=== PATIENT | female | born 1940 | race Caucasian/White ===

== ENCOUNTER 2024-05-30 11:11 | Inpatient (IN) | payer OTHER, SELFPAY ==
[2024-05-29] VITALS (9 sets, daily range): BP systolic 94–139; BP diastolic 61–97; BMI 27.9
[2024-05-29 12:01] LABS: % Basophils 0.3 % (0-2); % Eosinophils 0.1 % (0-6); % Immature Granulocytes 0.3 % (0-0.5); % Lymphocytes 12.8 % (20.5-51.1); % Monocytes 4.4 % (1.7-9.3); % Neutrophils 82.1 % (42.2-75.2); Absolute Lymphocytes 0.9 10^3/uL (1.2-3.4); Absolute Monocytes 0.3 10^3/uL (0.1-0.6); Absolute Neutrophils 5.8 10^3/uL (1.4-6.5); Hematocrit 41.4 % (37.0-47.0); Hemoglobin 14.2 g/dL (12.0-16.0); Mean Corp Hgb Conc. 34.3 g/dL (33.0-37.0); Mean Corpuscular Hgb 32.1 pg (27.0-31.0); Mean Corpuscular Volume 93.7 fL (81.0-99.0); Mean Platelet Volume 9.8 fL (7.4-10.4); Nucleated Red Blood Cells % 0 %; Platelet Count 232 10^3/uL (130-400); Red Blood Cell Count 4.42 10^6/uL (4.20-5.40); Red Cell Dist. Width 13.8 % (11.5-14.5)
[2024-05-29 12:07] LABS: INR 0.93; PT 12.7 Sec (11.4-14.6)
[2024-05-29 12:10] LABS: ALT (SGPT) 18 U/L (0-35); AST (SGOT) 24 U/L (14-36); Albumin 3.7 g/dl (3.5-5.0); Alkaline Phosphatase 70 U/L (38-126); Blood Urea Nitrogen 25 mg/dl (7-17); Calcium 9.2 mg/dl (8.4-10.2); Carbon Dioxide 28 mmol/L (22-30); Chloride 109 mmol/L (98-107); Estimated Creatinine Clearance 70 ml/min; Glucose 144 mg/dl (70-99); Potassium 4.1 mmol/L (3.5-5.1); Sodium 142 mmol/L (135-145); Total Bilirubin 0.6 mg/dl (0.2-1.3); Total Protein 5.8 g/dl (6.3-8.2); eGFR > 60.00
[2024-05-29 12:25] LABS: Troponin I 0.086 ng/ml
--- NOTE | 2024-05-29 12:30 | ED.GENMED ---
History of Present Illness
General
Chief Complaint: Dizziness
Source: patient
Exam Limitations: none
Time Seen by Provider: 05/29/24 12:07
Nursing documentation reviewed up to this point in time: agreed with
History of Present Illness
History of Present Illness:
83 yo female from [facility] here for 'vertigo and vomiting.' State she had a 'terrible' general headache 10 p.m. last night and was vomiting several times durning the night. Last emesis 1 hour ago. It was room spinning dizziness and seems to be
improving. Moving around, standing worsens dizziness, laying still relieves it
Denies weakness in extremities, denies headache now. Has chronic pain in right leg and EMG scheduled in 4 days.
Denies change in vision, denies CP, SOB, abdominal pain.
She has had vertigo in the past and had out pt therapy for it about 2 years ago.
Past History
Past History
ED Past Medical History: HTN and Hypercholesterolemia
ED Past Surgical History: Orthopedic (L ankle and R knee surg.)
Social History
Tobacco: Non-smoker
Alcohol: None
Personal: Single
Living: alone
Review of Systems
Review of Systems
Allergies reviewed?: Yes
All Other Systems: ROS reviewed and negative except as documented in HPI and ROS
Constitutional: Denies fever
EENT: Denies sore throat
Respiratory: Denies cough or trouble breathing
Cardiac: Denies chest pain, palpitations or syncope
ABD/GI: Reports nausea and vomiting; Denies abdominal pain or diarrhea
: Denies dysuria, frequency, flank pain or difficulty voiding
Musculoskeletal: Reports other (Chronic Right leg pain, has EMG scheduled in 4 days)
Skin: Reports no symptoms
Neurological: Reports dizzy and headache (last night, no headache now); Denies weakness or numbness
Phy Exam
Physical Exam
Physical Exam:
GENERAL: No acute distress. A&Ox3.
CONSTITUTIONAL: Afebrile.
EYES: clear, conjunctivae normal
ENMT: moist mucus membranes, Pharynx nl, TMs normal
RESPIRATORY: Regular respirations, nonlabored, lungs clear.
CARDIOVASCULAR: Regular rate and rhythm, no murmurs, no rubs.
GI: Soft, nontender, normal BS
MUSCULOSKELETAL: Moves with ease. Well perfused.
SKIN: Warm, dry, pink
PSYCH: Normal mood and affect. Well kept, interactive and appropriate
NEUROLOGIC: Awake, alert and oriented. Speech clear. Cranial nerves II through XII intact. Avqdes-vd-bbul intact. No focal neurological deficits
Scores
NIH Stroke Score
Level of Consciousness: 0 - Alert
LOC Questions: 0-Answers both correctly
LOC Commands: 0-Performs both correctly
Best Horizontal Gaze: 0-Normal
Visual Mendoza: 0=Normal, no visual loss
Facial Palsy: 0=Normal, symmetrical
Motor - Right Arm: 0=No drift 10 seconds
Motor - Left Arm: 0=No drift 10 seconds
Motor - Right Le-No drift 5 seconds
Motor - Left Le-No drift 5 seconds
Limb Ataxia: 0-Absent
Sensation: 0-Normal
Best Language: 0-No aphasia
Dysarthria: 0-Normal
Extinction and Inattention: 0-No abnormality
Total Score:: 0
Course
Orders/Labs/Results
Orders:
Orders
05/29/24 11:45
EKG [Electrocardiogram (*1)] Urgent
Reason for Study: Vertigo / Dizzy
CT Head W/o Iv Contrast Urgent
Comment:
Reason For Exam: dizziness, nausea
EKG- Treatment ONCE
05/29/24 11:49
Complete Blood Count/With Diff Urgent
Comprehensive Metabolic Panel Urgent
Prothrombin Time Urgent
Troponin I Urgent
05/29/24 13:20
Ondansetron Injectable [Zofran] 4 mg IV NOW STA
05/29/24 14:32
Troponin I Urgent
05/29/24 Dinner
Cholesterol Lowering
At Your Request: Limited Participation
Cholesterol Lowering: Sodium, 2 Gram
Regular
At Your Request: Full Participation
Does patient need a safe tray?: No
05/29/24 15:01
Admit/Transfer Patient As Directed
Co-Sign Provider:
Level of Care: Observation services
Assign to:: Telemetry
Physician / Group: dae jones
Diagnosis: Vertigo
Reason for Telemetry: CVA/TIA
Date to Stop Telemetry: 06/01/24
Time to Stop Telemetry: 11:00
PRN Pain Medication Management As Directed
May give lesser potent ordered pain med per pt: Yes
preference::
Protocol:: Medication orders for pain may be administered in a
manner that supports deferring to patient preference
when the pt is:
- Requesting an ordered lesser potent pain medication.
Least to most potent pain medications are defined
as: acetaminophen < NSAID < tramadol < opioids
(morphine, oxycodone, hydromorphone).
- Requesting a lesser dose of the same medication IF
ORDERED.
- Requesting a less intrusive route of administration
if both routes are prescribed by the provider (PO <
IV).
05/29/24 15:02
Code Status As Directed
Resuscitation Status: Full Code
05/29/24 16:00
Aspirin Chewable [Low Strength Aspirin] 81 mg PO DAILY
05/29/24 17:20
Acetaminophen [Tylenol] 500 mg PO Q6HPRN PRN
Bisacodyl [Dulcolax] 10 mg RECTAL [id number] PRN
Docusate W/Senna [Senokot-S] 1 tablet PO BIDPRN PRN
Meclizine [Antivert] 25 mg PO Q6HPRN PRN
Ondansetron Injectable [Zofran] 4 mg IV Q6HPRN PRN
Polyethylene Glycol Powder [Miralax] 17 grams PO DAILYPRN PRN
05/29/24 17:20
Activity As Directed
Activity Level: With Assistance
Vital Signs As Directed
Frequency: Per unit guidelines
DX Deep Vein Thrombosis Video Routine
05/29/24 17:41
Pt Screening Request from Mark Routine
05/29/24 18:00
Atorvastatin [Lipitor] 10 mg PO QPM
Enoxaparin Sodium [Lovenox] 40 mg SC QPM
Flush (0.9% Sodium Chloride) [Flush (Nss)] See Dose Instructions IV PER PROTOCOL
05/29/24 19:29
MRSA Screen Routine
MATHEW Source: Nose
Specimen Description:
05/29/24 20:57
Troponin I Routine
Urinalysis Reflex To Culture Urgent
Date Specimen was Collected: 05/29/24
Time Specimen was Collected: 17:18
Urine Microscopic Reflex Cult Urgent
Urine Culture Urgent
MATHEW Source: U
Specimen Description:
Date Specimen was Collected: 05/29/24
Time Specimen was Collected: 17:18
05/29/24 22:00
Amitriptyline [Elavil] 50 mg PO HS
05/30/24 07:04
Basic Metabolic Panel IN AM
Cardiovascular Evaluation IN AM
Complete Blood Count/No Diff IN AM
Hemoglobin A1c [Glycohemoglobin (HgbA1c)] IN AM
Troponin I IN AM
05/30/24 08:00
Amlodipine [Norvasc] 2.5 mg PO DAILY
Lisinopril [Zestril] 40 mg PO DAILY
Multivitamin [Theragran] 1 tablet PO DAILY
Pantoprazole [Protonix] 40 mg PO DAILY
05/30/24 15:07
MR Brain Without Contrast Routine
Reason For Exam: r/O CVA
OK for patient to be off Cardiac Monitoring for MRI: Yes
Recent pill cam endoscopy?: No
Pacemaker/Defibrillator?: No
Brain Aneurysm Clips?: No
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
06/01/24 11:00
DC Protocol for Telemetry ONCE
Abnormal Lab Results
05/29/24 05/29/24 05/29/24
11:49 14:32 20:57
RBC
MCH 32.1 H pg
(27.0-31.0)
Absolute Lymphs (auto) 0.9 L 10^3/uL
(1.2-3.4)
Neutrophils % 82.1 H %
(42.2-75.2)
Lymphocytes % 12.8 L %
(20.5-51.1)
Chloride 109 H mmol/L
(98-107)
BUN 25 H mg/dl
(7-17)
Glucose 144 H mg/dl
(70-99)
Troponin I 0.086 H* ng/ml 0.099 H* ng/ml 0.090 H* ng/ml
Total Protein 5.8 L g/dl
(6.3-8.2)
Triglycerides
Urine Bacteria (Reflex) Moderate A
(Negative)
Urine Albumin (Reflex) 1+ A
(Neg - Trace)
05/30/24
07:04
RBC 4.00 L 10^6/uL
(4.20-5.40)
MCH 32.3 H pg
(27.0-31.0)
Absolute Lymphs (auto)
Neutrophils %
Lymphocytes %
Chloride 110 H mmol/L
(98-107)
BUN 23 H mg/dl
(7-17)
Glucose
Troponin I 0.083 H* ng/ml
Total Protein
Triglycerides 153 H mg/dl
(10-149)
Urine Bacteria (Reflex)
Urine Albumin (Reflex)
05/30/24 07:04
05/30/24 07:04
Vital Signs
Initial and Last Documented VS:
Initial Vital Signs
Pulse Resp Pulse Ox
71 9 98
05/29/24 11:43 05/29/24 11:43 05/29/24 11:43
Last Documented Vital Signs
Temp Pulse Resp BP Pulse Ox
98.3 F 86 17 133/66 94
05/30/24 15:29 05/30/24 15:29 05/30/24 15:29 05/30/24 15:29 05/30/24 15:29
Controls Operator Molded Goods consulted with Physician
Controls Operator Molded [employer]s consulted with physician?: Yes
Name of Physician Consulted: Kvng
MDM/Problems Addressed
Differential Diagnosis Includes:
BPPV, CVA, Labyrinthitis
Elevated Troponin, AK
MDM/Problems Addressed:
83 yo female from [facility] here for 'vertigo and vomiting.' State she had a 'terrible' general headache 10 p.m. last night and was vomiting several times durning the night. Last emesis 1 hour ago. It was room spinning dizziness and seems to be
improving,. Moving around, standing worsens dizziness, laying still relieves it
Denies weakness in extremities, denies headache now. Has chronic pain in right leg and EMG scheduled in 4 days.
Denies change in vision, denies CP, SOB, abdominal pain.
She has had vertigo in the past and had out pt therapy for it about 2 years ago.
EKG abnormal: changes from previous in 2012 noted.
Troponin 0.086
CBC unremarkable
CMP with no clinically significant abnormality
Head CT shows nothing acute
2:30 PM:
This examiner attempted to get patient out of bed to ambulate to bathroom, standing at the side of the bed she became extremely dizzy and could not ambulate. Placed back in bed.
Second troponin pending
Straight cath UA pending
Plan: Admit to hospitalist. Hospitalist notified of admission.
Diagnosis: Persistent dizziness/vertigo, elevated troponin
Pt informed of plan
*EKG
EKG Intrepretation Date: 05/29/24
Interpretation: abnormal
Rate: normal
Rhythm: sinus and PVC's
Interval: first degree heart block and long QT
QRS Pattern: normal QRS
Ischemia: no ischemia
*Critical Care Note
Total Time (30-74mins, 75-104mins- exclusive of procedures): Not Applicable
ED Attending Note
-
Portions of this chart may have been created with voice recognition software.� Occasional wrong word or��sound alike� substitutions may have occurred due to the inherent limitations of voice recognition software.
Discharge Plan
Departure
Patient Disposition: Admit
Date of Disposition: 05/29/24
Time of Disposition: 14:37
Admit to: Med/Surg
Presentation/result/management discussed w/ accepting MD/DO: Hospitalist
Condition: Fair
Discharge Problem:
Dizziness
Interventions
Interventions:
*Risk Screen - Suicide Last Done: 05/29/24 11:47
*General Assessment Last Done: 05/29/24 11:47
*Neglect/Abuse Screening Last Done: 05/29/24 11:47
*ED COVID-19 Vaccine History Last Done: 05/29/24 11:47
*Nursing Disposition Last Done: 05/29/24 17:19
ED- Neurological Assessment Last Done: 05/29/24 11:48
ED- Cardiac Assessment Last Done: 05/29/24 11:48
Discharge Date and Time
Discharge Date/Time: 05/29/24 17:19
[2024-05-29] MEDS: ZOFRAN 4 MG IV ×2 (13:34→20:46)
--- NOTE | 2024-05-29 15:09 | HPS.HSE ---
Family Physician
-
Family Physician: Jesika Howard
Chief Complaint
-
Dizziness, vomiting
History of Present Illness
Patient is a pleasant 83 years old female with past medical history known for hypertension, hypercholesterolemia who came to the hospital from [facility] with vertigo which started last night associated with nausea and vomiting and headaches.
Patient denies any other neurological symptoms, no weakness or numbness, no slurred speech, no facial droop.
Patient had vertigo in the past and this is her third time.
Initial blood work in the ER came back unremarkable except for mildly elevated troponin.
Patient seen and examined at bedside, denies any chest pain or shortness of breath, no abdominal pain, no nausea, no vomiting, no diarrhea or constipation.
Dizziness improved with laying flat increased with ambulation.
Patient will be admitted under hospitalist service.
Medical History
Past Medical History
Past Medical History: Reports HTN and Hypercholesterolemia
Past Surgical History: Reports Orthopedic
Social History
Tobacco: Non-smoker
Alcohol: None
Drug: None
Personal: Single
Living: Alone
Family History
Family History: Not pertinent
Allergies / Home Medications
Allergies reflects when Allergies were last updated in [employer].
Home Medications with original date entered in [employer]
Allergy/Medication List:
Allergies
Allergy/AdvReac Type Severity Reaction Status Date / Time
beta blockers Allergy psoriasis Uncoded 05/29/24 11:45
Home Medications
amitriptyline 50 mg tablet 50 mg PO HS 02/25/13
lisinopril 40 mg tablet 40 mg PO DAILY 02/25/13
simvastatin 20 mg tablet 20 mg PO QPM 02/25/13
amlodipine 2.5 mg tablet 2.5 mg PO DAILY 12/15/14
acetaminophen 500 mg tablet (Tylenol Extra Strength) 500 mg PO TID 05/29/24
omeprazole 20 mg tablet,delayed release 20 mg PO DAILY 05/29/24
therapeutic multivitamin 1 tab PO DAILY 05/29/24
Review of Systems
-
A 12 point ROS was completed and negative except as noted: Yes
Constitutional: Denies Fever, Weight Gain, Weight Loss, Fatigue or Sleep Disturbance
EENT: Denies Tearing, Sore Throat, Mouth Pain, Mouth Swelling or Runny Nose
Respiratory: Denies Cough, Hemoptysis or Trouble Breathing
Cardiac: Denies Chest Pain, Diaphoresis, Palpitations or Syncope
Abdomen/GI: Reports Nausea and Vomiting; Denies Abdominal Pain, Diarrhea, Constipated, Bloody Stools or Black Stools
: Denies Dysuria, Frequency, Flank Pain, Incontinence, Difficulty Voiding, Urgency, Bleeding or Dark Urine
Musculoskeletal: Denies Joint Pain, Joint Swelling, Muscle Pain, Muscle Stiffness or Edema
Skin: Denies Itching or Rash
Neurological: Reports Dizzy and Headache; Denies Weakness or Numbness
Endocrine: Denies Polyuria, Polydipsia or Temp Intolerance
Hematologic/Lymphatic: Denies Bleeding, Swollen Glands or Bruising
Psych: Reports Calm; Denies Depression, Anxiety or Panic Disorder
Physical Exam
Vital Signs
Vital Signs
Temp Pulse Resp BP Pulse Ox
97.4 F 71 19 129/70 100
05/29/24 11:44 05/29/24 14:30 05/29/24 14:30 05/29/24 14:00 05/29/24 14:30
Physical Exam
General: Well Developed, Well Nourished, No Apparent Distress, Comfortable and Good Appetite; No Pain, Chills or Sweats
HEENT: NormoCephalic, Moist mucous membranes, Atraumatic, Good Dentition, PERRLA, Nose Appears Normal and Ears Appear Normal
Respiratory: Clear
Cardiac: S1/S2 and Regular Rhythm
Breast: Deferred by me
GI: Soft, Non Tender, Non Distended and Normal Bowel Sounds
Genito-urinary: Deferred by me
Musculoskeletal: No Clubbing, No Cyanosis and No Edema
Skin: Warm; No Rash, Jaundice, Ulcers, Lesions or Decubitus Ulcers
Neuro: Awake, Alert, Oriented, AO x 3, No Motor Deficits, Nonfocal/grossly intact and Cranial Nerves Intact
Hematologic/Lymphatic: No Lymphadenopathy
Psych: Calm
Laboratory Results
-
05/29/24 11:49
05/29/24 11:49
Laboratory Results
PT 12.7 Sec (11.4-14.6) 05/29/24 11:49
INR 0.93 05/29/24 11:49
Total Bilirubin 0.6 mg/dl (0.2-1.3) 05/29/24 11:49
AST 24 U/L (14-36) 05/29/24 11:49
ALT 18 U/L (0-35) 05/29/24 11:49
Alkaline Phosphatase 70 U/L (38-126) 05/29/24 11:49
Troponin I 0.086 ng/ml H* 05/29/24 11:49
Data Reviewed
-
Diagnostic Radiology: Report Reviewed by me
CT Scan: Report Reviewed by me
Medical Tests (Nuc Med, Echo, EKG etc): Report Reviewed by me
Lab Data: Labs Reviewed by me
Old Records: Reviewed
Impression/Plan
-
IMPRESSION:
Patient is 83 years old with history of hypertension and hyperlipidemia who came with dizziness and vertigo, will be admitted to rule out posterior stroke
Assessment/plan:
Dizziness, possible benign positional vertigo
CT head done in the ER shows no acute intracranial abnormality
Blood work unremarkable
Admit to telemetry bed.
Frequent neurocheck.
MRI brain (patient has istent)
Check hemoglobin A1c, fasting lipid panel.
PT/OT consult (if positive MRI)
Neurology consult if persistent symptoms
Social service for discharge.
Echo pending
start Meclizine.
Aspirin/statin
Elevated troponin.
Patient denies chest pain.
No acute EKG changes.
Echocardiogram pending
History of hypertension
Continue home meds
History of hyperlipidemia
Continue statin
CODE STATUS: Full code
DVT prophylaxis: Lovenox
Diet: Regular diet
Total time spent on today's encounter was 75 minutes which included time spent in counseling the patient/family regarding diagnosis and treatment plan as listed above, goals of care, and symptom management. Case was discussed with nursing staff,
specialists, and care coordinators/case management. All labs and imaging personally reviewed by me. Remainder the time spent in detailed review of previous records, lab data, imaging, and other medical provider documentation.
[2024-05-29 15:12] LABS: Troponin I 0.099 ng/ml
[2024-05-29] MEDS: LOW STRENGTH ASPIRIN 81 MG PO (15:37)
--- NOTE | 2024-05-29 17:45 | PTCARENOTE ---
Received pt from ED via stretcher. AAOx3. Stretcher placed next to bed, pt able to stand and pivot into bed with assist x2. Pt c/o lightheadedness and dizziness upon standing. No complaints of pain. compliance monitor placed. Will cont to monitor.
[2024-05-29] MEDS: LIPITOR 10 MG PO (18:08)
[2024-05-29] MEDS: LOVENOX 40 MG SC (18:08)
[2024-05-29] MEDS: ANTIVERT 25 MG PO (20:30)
[2024-05-29 21:08] LABS: Urine Albumin 1+ (Neg - Trace); Urine Bilirubin Negative (Negative); Urine Character Slightly Cloudy (Clear); Urine Color Yellow; Urine Glucose Negative (Negative); Urine Ketone Negative (Negative); Urine Leukocyte Negative (Negative); Urine Nitrite Negative (Negative); Urine Occult Blood Negative (Negative); Urine Urobilinogen Negative (Neg - 1+)
[2024-05-29 21:14] LABS: Urine Amorphous Seen; Urine Bacteria Moderate (Negative); Urine Red Blood Cell 0-2 /HPF (0-2)
[2024-05-29] MEDS: ELAVIL 50 MG PO (22:16)
[2024-05-30] VITALS (7 sets, daily range): BP systolic 105–153; BP diastolic 50–77; PULSE 62–79; BMI 28.1
[2024-05-30 07:18] LABS: Hematocrit 38.2 % (37.0-47.0); Hemoglobin 12.9 g/dL (12.0-16.0); Mean Corp Hgb Conc. 33.8 g/dL (33.0-37.0); Mean Corpuscular Hgb 32.3 pg (27.0-31.0); Mean Corpuscular Volume 95.5 fL (81.0-99.0); Mean Platelet Volume 10.1 fL (7.4-10.4); Platelet Count 210 10^3/uL (130-400); Red Cell Dist. Width 14.2 % (11.5-14.5); White Blood Cell Count 7.8 10^3/uL (4.8-10.8)
[2024-05-30 07:57] LABS: Troponin I 0.083 ng/ml
[2024-05-30] MEDS: LOW STRENGTH ASPIRIN 81 MG PO (08:34)
[2024-05-30] MEDS: ZESTRIL 40 MG PO (08:34)
[2024-05-30] MEDS: PROTONIX 40 MG PO (08:34)
[2024-05-30] MEDS: THERAGRAN 1 TABLET PO (08:34)
[2024-05-30] MEDS: NORVASC 2.5 MG PO (08:34)
[2024-05-30 08:35] LABS: Blood Urea Nitrogen 23 mg/dl (7-17); Carbon Dioxide 27 mmol/L (22-30); Chloride 110 mmol/L (98-107); Estimated Creatinine Clearance 60 ml/min; Glucose 91 mg/dl (70-99); HDL Cholesterol 66 mg/dl; LDL Cholesterol, Calculated 78 mg/dl; Potassium 4.4 mmol/L (3.5-5.1); Sodium 141 mmol/L (135-145); Total Cholesterol 174 mg/dl (50-199); Triglyceride 153 mg/dl (10-149); Very Low Density Lipoprotein 30 mg/dl (0-30); eGFR > 60.00
[2024-05-30 10:43] LABS: Glycohemoglobin (HgbA1c) 5.5 % (4.0-5.6)
--- NOTE | 2024-05-30 12:52 | W.PN.HOSP.TC ---
Today's Communication/Plan
-
Neuro consult
Assessment / Plan
Assessment / Plan
IMPRESSION:
Patient is 83 years old with history of hypertension and hyperlipidemia who came with dizziness and vertigo, will be admitted to rule out posterior stroke
Assessment/plan:
Acute/subacute right cerebellar hemisphere infarct
presented to the ER with dizziness.
CT head done in the ER shows no acute intracranial abnormality
MRi brain shows:
Focal areas of acute to subacute infarction involving the right cerebellar hemisphere. In the medial right cerebellar hemisphere, there is a small focus of associated hemorrhage.
Blood work unremarkable
Continue school lunch monitor
Frequent neurocheck.
Hemoglobin A1c 5.5, fasting lipid panel triglyceride 153, total cholesterol 174, LDL 78, HDL 66
PT/OT consult
Neurology consult .
Social service for discharge for discharge.
CTA head and neck pending
Echo pending
Started on aspirin but on hold now for concern of hemorrhage.
Increase statin to 40 mg.
Elevated troponin.
Patient denies chest pain.
No acute EKG changes.
Echocardiogram pending
History of hypertension
Allow permissive hypertension
History of hyperlipidemia
Continue statin
CODE STATUS: Full code
DVT prophylaxis: Lovenox
Diet: Regular diet
CODE STATUS: Full code
DVT prophylaxis: Lovenox
Diet: Regular diet
Disposition: Upgrade to inpatient
Total time spent on today's encounter was 65 minutes which included time spent in counseling the patient/family regarding diagnosis and treatment plan as listed above, goals of care, and symptom management. Case was discussed with nursing staff,
specialists, and care coordinators/case management. All labs and imaging personally reviewed by me. Remainder the time spent in detailed review of previous records, lab data, imaging, and other medical provider documentation.
Anticipated Discharge: 24 - 48 hours
Subjective/Interval History
-
Date of Service: May 30, 2024
Patient seen and examined at bedside, dizziness improved but not completely gone, denies any chest pain or shortness of breath, no abdominal pain, no nausea, no vomiting, no diarrhea or constipation.
MRI brain showed Focal areas of acute to subacute infarction involving the right cerebellar hemisphere. In the medial right cerebellar hemisphere, there is a small focus of associated hemorrhage.
Neurology consulted
Objective Data
-
Labs:
Laboratory Results
05/30/24
07:04
WBC 7.8
Hgb 12.9
Hct 38.2
Plt Count 210
Sodium 141
Potassium 4.4
Chloride 110 H
Carbon Dioxide 27
BUN 23 H
Creatinine 0.7
Glucose 91
Calcium 9.0
Vital Signs:
Vital Signs
Temp Pulse Resp BP Pulse Ox
98.2 F 60 16 133/50 96
05/30/24 10:57 05/30/24 10:57 05/30/24 10:57 05/30/24 10:57 05/30/24 10:57
I&O
05/29/24 05/30/24 05/31/24
06:59 06:59 06:59
Intake Total 480 / 480
Balance 480 / 480
Physical Exam
-
General: Well Developed, Well Nourished, No Apparent Distress and Comfortable
HEENT: Normocephalic, Atraumatic, Moist Mucous Membranes, No Ptosis, PERRLA and Nose Appears Normal
Respiratory: Clear to Auscultation and Non Labored Respirations
Cardiac: Regular Rhythm and S1/S2
Breast: Deferred by me
GI: Soft, Nontender, Nondistended and Normal Bowel Sounds
Genito-urinary: No Costovertebral Tender
Musculoskeletal: No Clubbing, No Cyanosis and No Edema
Skin: Warm
Neuro: Awake, Alert, Oriented, AO x 3 and No Motor Deficits
Psych: Calm
Data Reviewed
-
Diagnostic Radiology: Image personally visualized and interpreted and Report Reviewed by me
CT Scan: Image personally visualized and interpreted and Report Reviewed by me
Ultrasound: Image personally visualized and interpreted and Report Reviewed by me
MRI: Image personally visualized and interpreted and Report Reviewed by me
Medical Tests (Nuc Med, Echo etc): Image personally visualized and interpreted and Report Reviewed by me
Labs: Labs Reviewed by me
Old Records: Reviewed
--- NOTE | 2024-05-30 13:07 | CON.NEURO ---
Consultation
Order
Date of Consultation: 05/30/24
Requesting Provider: Kelly Hernandez MD
Reason for Consult: Stroke
Neurology Consultation Note.
HPI: This is AN 83-year-old woman who presented to [facility] on 05/29/2024 with vertigo. According to the patient she developed an acute vertigo with associated imbalance.
No reports of headaches, change in vision, dysarthria, nausea.
ER VS: 127/91, 71, afebrile
EKG: NSR, first degree of AV block, QTc Int : 504 ms
PDMP:none
Labs: Troponin 0.099, normal glucose, WBCs, sodium, LDL�78, hemoglobin A1c�5.5
CT head(05/30/2024) -no evidence of acute infarcts or hemorrhage
Brain MRI without angelique (05/30/2024)�acute right PICA/SCA infarct, medial right cerebellar, right thalamic and paramedian parietal lobe microhemorrhages.
PMH: HTN, DLP, GERD, right LS radiculopathy, glaucoma, left hip labral tear, Lichen planus, BCC, SCC, psoriasis, h/o migraine without aura
PSH:bilateral cataract surgery, right knee arthroscopy, L ankle ORIF, R bunionectomy with osteotomy
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
FH: Father�multiple sclerosis
All: Beta-mirtha
ROS: Constitutional: Negative. Negative for chills, fever and unexpected weight change.
HENT: Positive for chronic tinnitus
Eyes: Negative. Negative for photophobia, pain and visual disturbance.
Respiratory: Negative for cough, choking and shortness of breath.
Cardiovascular: Negative for chest pain, palpitations and leg swelling.
Gastrointestinal: Positive for dysphagia to solid, chronic constipation
Endocrine: Negative. Negative for cold intolerance.
Genitourinary: Negative for dysuria, flank pain and urgency.
Musculoskeletal: Positive for chronic right leg pain, left hip pain
Skin: Negative for rash.
Allergic/Immunologic: Negative. Negative for immunocompromised state.
Neurological: Positive for right leg weakness, distal paresthesias, transient vertigo
Psychiatric/Behavioral: Negative for behavioral problems, confusion and hallucinations.
General: Well developed. In no acute distress.
Cardio: Regular rate and rhythm without murmur. Extremities are without cyanosis or edema.
Neuro:
Mental Status: Alert, oriented to person, place, and date. Normal attention and recall. Good fund of knowledge. Follows complex requests across the midline. Comprehension, naming, and repetition intact.
Cranial Nerves: Pupils are equally round, surgical. EOMs full. Visual toscano full to confrontation. Horizontal nystagmus on left lateral gaze. No ptosis. V1-V3 intact to light touch and pinprick bilaterally, symmetric. Face symmetric. Reduced
hearing on the left. No lateralization on Hernandez's testing the palate elevated well. SCMs and traps 5/5. Tongue midline. No dysarthria. No dysphonia
Motor: Normal bulk and tone. No pronator or arm drift. Strength 5/5 throughout. No clonus.
Reflexes: 2+ throughout the upper extremities and knees. Plantar responses flexor bilaterally. Negative grasp
Sensory: Normal vibration at the toes and ankles
Coordination: No dysmetria or tremor.
Gait: deferred
Assessment and Plan:
I. 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
II. Multifocal chronic cerebral microhemorrhages. Differential diagnosis includes hypertensive versus cerebral amyloid angiopathy
III.Chronic R L 5 radiculopathy
IV. Ambulatory dysfunction
-Telemetry monitoring
-Aspiration and fall precautions
-Dysphagia evaluation
-Continue Aspirin 81 mg once a day.
-Lipitor 40 mg nightly
-Please follow-up CTA results
-TEJAS if TTE is unremarkable
-PT.
-Outpatient neuropsychological evaluation
-DVT prophylaxis.
I personally reviewed all radiology and labs along with past medical records pertinent to current medical problems. Total time spent in patient care is 60 minutes.
Thank you for allowing us to participate in the care of this patient. We will continue to follow. Please do not hesitate to contact us with any questions or concerns.
Subjective/Objective
Subjective Data
Date of Service: May 30, 2024
Objective Data
Vital Signs
Temp Pulse Resp BP Pulse Ox
36.8 C 60 16 133/50 96
05/30/24 10:57 05/30/24 10:57 05/30/24 10:57 05/30/24 10:57 05/30/24 10:57
Lab Results
05/30/24 07:04
05/30/24 07:04
PT 12.7 Sec (11.4-14.6) 05/29/24 11:49
INR 0.93 05/29/24 11:49
Sodium 141 mmol/L (135-145) 05/30/24 07:04
Potassium 4.4 mmol/L (3.5-5.1) 05/30/24 07:04
BUN 23 mg/dl (7-17) H 05/30/24 07:04
Glucose 91 mg/dl (70-99) 05/30/24 07:04
Calcium 9.0 mg/dl (8.4-10.2) 05/30/24 07:04
LDL Cholesterol, Calc 78 mg/dl 05/30/24 07:04
Patient Allergies
Beta-Blockers (Beta-Adrenergic Bloc Allergy (Verified 05/29/24 17:25)
PSORIASIS
Medications
-
Active Medications
Generic Name Dose Route Start Last Admin
Trade Name Freq PRN Reason Stop Dose Admin
Acetaminophen 500 mg 05/29/24 17:20
Acetaminophen 500 Mg Tablet PO 06/26/24 17:19
Q6HPRN PRN
pain
Amitriptyline HCl 50 mg 05/29/24 22:00 05/29/24 22:16
Amitriptyline 50 Mg Tablet PO 06/26/24 21:59 50 mg
HS ANGELA Administration
Amlodipine Besylate 2.5 mg 05/30/24 08:00 05/30/24 08:34
Amlodipine 2.5 Mg Tablet PO 06/27/24 07:59 2.5 mg
DAILY ANGELA Administration
Aspirin 81 mg 05/29/24 16:00 05/30/24 08:34
Aspirin 81 Mg Chewable Tablet PO 06/26/24 15:59 81 mg
DAILY ANGELA Administration
Atorvastatin Calcium 40 mg 05/30/24 18:00
Atorvastatin (Lipitor) 40 Mg Tablet PO 06/27/24 17:59
QPM ANGELA
Bisacodyl 10 mg 05/29/24 17:20
Bisacodyl 10 Mg Rectal Suppository RECTAL 06/26/24 17:19
[id number] PRN
constipation
Enoxaparin Sodium 40 mg 05/29/24 18:00 05/29/24 18:08
Enoxaparin Sodium 40 Mg/0.4 Ml Syringe SC 06/26/24 17:59 40 mg
QPM ANGELA Administration
Lisinopril 40 mg 05/30/24 08:00 05/30/24 08:34
Lisinopril 20 Mg Tablet PO 06/27/24 07:59 40 mg
DAILY ANGELA Administration
Meclizine HCl 25 mg 05/29/24 17:20 05/29/24 20:30
Meclizine 25 Mg Tablet PO 06/26/24 17:19 25 mg
Q6HPRN PRN Administration
Dizzeness
Multivitamins Therapeutic 1 tablet 05/30/24 08:00 05/30/24 08:34
Multivitamin Tablet PO 06/27/24 07:59 1 tablet
DAILY ANGELA Administration
Ondansetron HCl 4 mg 05/29/24 17:20 05/29/24 20:46
Ondansetron 4 Mg/2 Ml Vial IV 06/26/24 17:19 4 mg
Q6HPRN PRN Administration
nausea and vomiting
Pantoprazole Sodium 40 mg 05/30/24 08:00 05/30/24 08:34
Pantoprazole 40 Mg Delayed Release Tablet PO 06/27/24 07:59 40 mg
DAILY ANGELA Administration
Polyethylene Glycol 17 grams 05/29/24 17:20
Polyethylene Glycol Powder 17 Grams Packet PO 06/26/24 17:19
DAILYPRN PRN
constipation
Senna/Docusate Sodium 1 tablet 05/29/24 17:20
Docusate W/Senna (Alix-Colace) Tablet PO 06/26/24 17:19
BIDPRN PRN
constipation
Sodium Chloride 0 flush 05/29/24 18:00
Sodium Chloride 0.9% (Flush) Syringe IV 06/26/24 17:59
PER PROTOCOL ANGELA
Home Medications
�Medication �Instructions �Recorded
amitriptyline 50 mg tablet 50 mg PO HS 02/25/13
lisinopril 40 mg tablet 40 mg PO DAILY 02/25/13
simvastatin 20 mg tablet 20 mg PO QPM 02/25/13
amlodipine 2.5 mg tablet 2.5 mg PO DAILY 12/15/14
acetaminophen 500 mg tablet 500 mg PO TID 05/29/24
(Tylenol Extra Strength)
omeprazole 20 mg tablet,delayed 20 mg PO DAILY 05/29/24
release
therapeutic multivitamin 1 tab PO DAILY 05/29/24
Vital Signs and Labs
-
Vital Signs and Labs:
Vital Signs
Temp Pulse Resp BP Pulse Ox
36.8 C 60 16 133/50 96
05/30/24 10:57 05/30/24 10:57 05/30/24 10:57 05/30/24 10:57 05/30/24 10:57
Lab Results
05/30/24 07:04
05/30/24 07:04
PT 12.7 Sec (11.4-14.6) 05/29/24 11:49
INR 0.93 05/29/24 11:49
Sodium 141 mmol/L (135-145) 05/30/24 07:04
Potassium 4.4 mmol/L (3.5-5.1) 05/30/24 07:04
BUN 23 mg/dl (7-17) H 05/30/24 07:04
Glucose 91 mg/dl (70-99) 05/30/24 07:04
Calcium 9.0 mg/dl (8.4-10.2) 05/30/24 07:04
LDL Cholesterol, Calc 78 mg/dl 05/30/24 07:04
Medications
-
Medications:
Generic Name Dose Route Start Last Admin
Trade Name Freq PRN Reason Stop Dose Admin
Acetaminophen 500 mg 05/29/24 17:20
Acetaminophen 500 Mg Tablet PO 06/26/24 17:19
Q6HPRN PRN
pain
Amitriptyline HCl 50 mg 05/29/24 22:00 05/29/24 22:16
Amitriptyline 50 Mg Tablet PO 06/26/24 21:59 50 mg
HS ANGELA Administration
Amlodipine Besylate 2.5 mg 05/30/24 08:00 05/30/24 08:34
Amlodipine 2.5 Mg Tablet PO 06/27/24 07:59 2.5 mg
DAILY ANGELA Administration
Aspirin 81 mg 05/29/24 16:00 05/30/24 08:34
Aspirin 81 Mg Chewable Tablet PO 06/26/24 15:59 81 mg
DAILY ANGELA Administration
Atorvastatin Calcium 40 mg 05/30/24 18:00
Atorvastatin (Lipitor) 40 Mg Tablet PO 06/27/24 17:59
QPM ANGELA
Bisacodyl 10 mg 05/29/24 17:20
Bisacodyl 10 Mg Rectal Suppository RECTAL 06/26/24 17:19
[id number] PRN
constipation
Enoxaparin Sodium 40 mg 05/29/24 18:00 05/29/24 18:08
Enoxaparin Sodium 40 Mg/0.4 Ml Syringe SC 06/26/24 17:59 40 mg
QPM ANGELA Administration
Lisinopril 40 mg 05/30/24 08:00 05/30/24 08:34
Lisinopril 20 Mg Tablet PO 06/27/24 07:59 40 mg
DAILY ANGELA Administration
Meclizine HCl 25 mg 05/29/24 17:20 05/29/24 20:30
Meclizine 25 Mg Tablet PO 06/26/24 17:19 25 mg
Q6HPRN PRN Administration
Dizzeness
Multivitamins Therapeutic 1 tablet 05/30/24 08:00 05/30/24 08:34
Multivitamin Tablet PO 06/27/24 07:59 1 tablet
DAILY ANGELA Administration
Ondansetron HCl 4 mg 05/29/24 17:20 05/29/24 20:46
Ondansetron 4 Mg/2 Ml Vial IV 06/26/24 17:19 4 mg
Q6HPRN PRN Administration
nausea and vomiting
Pantoprazole Sodium 40 mg 05/30/24 08:00 05/30/24 08:34
Pantoprazole 40 Mg Delayed Release Tablet PO 06/27/24 07:59 40 mg
DAILY ANGELA Administration
Polyethylene Glycol 17 grams 05/29/24 17:20
Polyethylene Glycol Powder 17 Grams Packet PO 06/26/24 17:19
DAILYPRN PRN
constipation
Senna/Docusate Sodium 1 tablet 05/29/24 17:20
Docusate W/Senna (Alix-Colace) Tablet PO 06/26/24 17:19
BIDPRN PRN
constipation
Sodium Chloride 0 flush 05/29/24 18:00
Sodium Chloride 0.9% (Flush) Syringe IV 06/26/24 17:59
PER PROTOCOL ANGELA
Home Medications
-
Home Medications
amitriptyline 50 mg tablet 50 mg PO HS 02/25/13
lisinopril 40 mg tablet 40 mg PO DAILY 02/25/13
simvastatin 20 mg tablet 20 mg PO QPM 02/25/13
amlodipine 2.5 mg tablet 2.5 mg PO DAILY 12/15/14
acetaminophen 500 mg tablet (Tylenol Extra Strength) 500 mg PO TID 05/29/24
omeprazole 20 mg tablet,delayed release 20 mg PO DAILY 05/29/24
therapeutic multivitamin 1 tab PO DAILY 05/29/24
--- NOTE | 2024-05-30 14:17 | PTOTSP ---
Speech Therapy Assessment
Speech, language and swallowing deemed within functional limits. No overt signs of aspiration.
Patient provided information on outpatient services for comprehensive testing if issues noted after discharge and upon return to normal activities.
Recommend
Continue with regular solids and thin liquids.
No skilled ST indicated during acute stay. As mentioned above, comprehensive testing in outpatient setting if needed.
--- NOTE | 2024-05-30 15:58 | CON.CAR ---
Addendum entered and electronically signed by Reece Bolden DO 05/30/24 17:28:
I saw and examined the patient.
The Optical Laboratory Technician's note was reviewed and I agree with the note.
Comment:
Plan:
Pt with acute/subacute R cerebellar CVA, felt to be embolic in etiology per neurology.
No evidence of atrial fibrillation. brief run of atrial tachycardia. Will need 14 day RhythmStar monitor at d/c and if negative could consider LINQ implantable monitor.
Cont tele
For TEJAS AM as per discussion with neuro to eval for embolic source
Echo 05/30 revealed new CM with EF 35-40%, however no clear embolic source.
-Reports prior intolerance to beta blockers as metoprolol caused a years long flare of psoriasis. Does not wish to be re-trialed on beta mirtha at this time.
-On lisinopril 40mg daily and amlodipine 2.5mg daily as OP. On hold currently to allow for permissive HTN given CVA.
-Once ok per neuro, would resume lisinopril and consider transitioning amlodipine to spironolactone for CM.
-Will have CM assess cost of Entresto and Jardiance/Farxiga.
-Troponin elevation noted, peaking at 0.099 and trending down thereafter. Continues to deny chest pain.
-Given new CM and elevated troponin, also discussed eventual plan for [facility] to evaluate for coronary artery disease. Holding off for now given acute stroke. On aspirin as above.
-LDL 78, simvastatin transitioned to high lipitor 40mg daily. LDL goal <70
Original Note:
Consultation
Consultation Request
Date/Time Consultation Requested: 05/30/2024
Date/Time Consultation Performed: 05/30/2024
Requesting Provider: Dr. Hernandez
Performing Provider: Princess Rebolledo PA-C for Dr. Bolden
Reason for Consultation: New CM, acute CVA
Medical History
-
History of Present Illness:
HPI: Aviva is an 83 year old female with PMH of hypertension, hyperlipidemia, and vertigo. She notes history of somewhat chronic vertigo and dizziness, but yesterday also had vomiting which was new, so she came to ER for evaluation. In ER, she
had head CT and CTA of head/neck which were unremarkable. Brain MRI revealed acute/subacute infarcts of the R cerebellum. Also noted to have multifocal chronic cerebral microhemorrhages. She was started on aspirin and high intensity statin. She
notes no prior cardiac history and has had no palpitations, chest pain, or SOB. Echo competed 05/30/2024 and revealed new CM with EF 35-40% resulting in cardiology consult. She feels back to baseline at this time and denies any further
dizziness/lightheadedness or vomiting.
PMH:
HTN
HLD
Vertigo
Past Medical History
Past Medical History: Other (In HPI)
Past Surgical History: Orthopedic
Social History
Tobacco: Non-Smoker
Alcohol: None
Drug: None
Personal: Single
Living: Alone
Family History
Family History: Reviewed & Not Pertinent
Allergies / Home Medications
Allergy/AdvReac Type Severity Reaction Status Date / Time
Beta-Blockers Allergy PSORIASIS Verified 05/29/24 17:25
(Beta-Adrenergic Bloc
�Medication �Instructions �Recorded �Confirmed �Type
amitriptyline 50 mg tablet 50 mg PO HS depression/sleep 02/25/13 05/29/24 History
lisinopril 40 mg tablet 40 mg PO DAILY Blood Pressure 02/25/13 05/29/24 History
simvastatin 20 mg tablet 20 mg PO QPM High Cholesterol 02/25/13 05/29/24 History
amlodipine 2.5 mg tablet 2.5 mg PO DAILY Blood Pressure 12/15/14 05/29/24 History
acetaminophen 500 mg tablet 500 mg PO TID Pain 05/29/24 05/29/24 History
(Tylenol Extra Strength)
omeprazole 20 mg tablet,delayed 20 mg PO DAILY Gastrointestinal 05/29/24 05/29/24 History
release Issue
therapeutic multivitamin 1 tab PO DAILY Supplement 05/29/24 05/29/24 History
Review of Systems
-
History Source: Patient
All other systems: Negative unless noted
Physical Exam
Vital Signs
Temp Pulse Resp BP Pulse Ox
98.3 F 86 17 133/66 94
05/30/24 15:29 05/30/24 15:29 05/30/24 15:29 05/30/24 15:29 05/30/24 15:29
Lab Results
05/30/24 07:04
05/30/24 07:04
Troponin I 0.083 ng/ml H* 05/30/24 07:04
Physical Exam
General: Well Developed, Well Nourished and No Apparent Distress
HEENT: Normocephalic, Anicteric and Moist Mucous Membranes
Respiratory: Clear and Non Labored Respirations
Cardiac: S1/S2 and Regular Rhythm
Musculoskeletal: No Clubbing, No Cyanosis and No Edema
Skin: Warm and Dry
Neuro: AO x 3 and Nonfocal/Grossly Intact
Psych: Calm
Impression / Plan
-
PCP: Dr. Howard
Rd Project Manager: None prior to arrival, initially seen by Dr. Bolden
Impression:
Presented with dizziness/vomiting
Acute/subacute R cerebellar CVA
Cardiomyopathy, EF 35-40%
Elevated troponin
Atrial tachycardia
HTN
HLD
Vertigo
Echo 05/30/2024: EF 35-40%, the apex, mid to distal ineroseptal, mid to distal lateral, mid to distal inferolateral and distal anterior cuadra are hypokinetic, mild LVH, no significant valvular disease. No cardiac source of embolus identified.
Plan:
-Presented with dizziness and vomiting. Found to have acute/subacute R cerebellar CVA, felt to be embolic in etiology per neurology.
-Continues on aspirin 81mg daily. No h/o atrial fibrillation noted. Denies any palpitations.
-ECG reviewed, SR with 1st degree AV block and PACs.
-No afib on review of telemetry, however brief run of atach noted. Continue to follow on tele while admitted. Will need 14 day Rhythm Star monitor at discharge.
-Echo 05/30 revealed new CM with EF 35-40%, however no clear embolic source. Patient denies any SOB or chest pain.
-Will tentatively arrange for TEJAS in AM to further assess for cardioembolic source. NPO after midnight.
-Reports prior intolerance to beta blockers as metoprolol caused a years long flare of psoriasis. Does not wish to be re-trialed on beta mirtha at this time.
-On lisinopril 40mg daily and amlodipine 2.5mg daily as OP. On hold currently to allow for permissive HTN given CVA.
-Once ok per neuro, would resume lisinopril and consider transitioning amlodipine to spironolactone for CM.
-Will have CM assess cost of Entresto and Jardiance/Farxiga.
-Troponin elevation noted, peaking at 0.099 and trending down thereafter. Continues to deny chest pain.
-Given new CM and elevated troponin, also discussed eventual plan for [facility] to evaluate for coronary artery disease. Holding off for now given acute stroke. On aspirin as above.
-LDL 78, simvastatin transitioned to high lipitor 40mg daily.
HPI: Aviva is an 83 year old female with PMH of hypertension, hyperlipidemia, and vertigo. She notes history of somewhat chronic vertigo and dizziness, but yesterday also had vomiting which was new, so she came to ER for evaluation. In ER, she
had head CT and CTA of head/neck which were unremarkable. Brain MRI revealed acute/subacute infarcts of the R cerebellum. Also noted to have multifocal chronic cerebral microhemorrhages. She was started on aspirin and high intensity statin. She
notes no prior cardiac history and has had no palpitations, chest pain, or SOB. Echo competed 05/30/2024 and revealed new CM with EF 35-40% resulting in cardiology consult. She feels back to baseline at this time and denies any further
dizziness/lightheadedness or vomiting.
Data Reviewed
-
EKG: Tracing Personally Visualized and interpreted
CT Scan: Report Reviewed by me
MRI: Report Reviewed by me
Medical Tests (Nuc Med, Echo etc): Report Reviewed by me
Labs: Labs Reviewed by me
Old Records: Reviewed
--- NOTE | 2024-05-30 16:49 | CM ---
Alert awake oriented patient who lives alone at [id number] She is independent in [facility] daily [facility].She does drive .She used a walker and cane .
No VN in past . No SNF hx
Pharmacy [facility]
PCP Dr Howard
PLAN Will need PT OT evals for discharge planning
[2024-05-30] MEDS: LIPITOR 40 MG PO (17:03)
[2024-05-30] MEDS: LOVENOX 40 MG SC (17:03)
[2024-05-30] MEDS: ELAVIL 50 MG PO (22:28)
[2024-05-31] VITALS (8 sets, daily range): BP systolic 105–143; BP diastolic 52–70; PULSE 67–68; O2SAT 94–95
[2024-05-31 06:20] LABS: Hematocrit 39.2 % (37.0-47.0); Hemoglobin 13.4 g/dL (12.0-16.0); Mean Corp Hgb Conc. 34.2 g/dL (33.0-37.0); Mean Corpuscular Hgb 32.8 pg (27.0-31.0); Mean Corpuscular Volume 95.8 fL (81.0-99.0); Mean Platelet Volume 10.2 fL (7.4-10.4); Platelet Count 203 10^3/uL (130-400); Red Blood Cell Count 4.09 10^6/uL (4.20-5.40); Red Cell Dist. Width 14.1 % (11.5-14.5); White Blood Cell Count 7.4 10^3/uL (4.8-10.8)
[2024-05-31 06:47] LABS: Blood Urea Nitrogen 19 mg/dl (7-17); Calcium 9.1 mg/dl (8.4-10.2); Carbon Dioxide 26 mmol/L (22-30); Chloride 107 mmol/L (98-107); Estimated Creatinine Clearance 60 ml/min; Glucose 94 mg/dl (70-99); Potassium 4.4 mmol/L (3.5-5.1); Sodium 138 mmol/L (135-145); eGFR > 60.00
[2024-05-31] MEDS: THERAGRAN 1 TABLET PO (07:53)
[2024-05-31] MEDS: PROTONIX 40 MG PO (07:53)
[2024-05-31] MEDS: LOW STRENGTH ASPIRIN 81 MG PO (07:53)
--- NOTE | 2024-05-31 09:31 | W.PN.NEURO.1 ---
Today's Communication / Plan
-
.
Subjective/Objective
Subjective Data
Date of Service: May 31, 2024
Neurology Follow up Note.
Ms. Silva endorses mild ataxia when she was working with PT earlier today. No reports of nausea, headache, change in vision, incoordination.
TEJAS is scheduled for today.
TTE was unremarkable.
CTA head/neck-no evidence of significant stenosis or dissection.
Brain MRI without angelique (05/30/2024)�acute right PICA/SCA infarct, medial right cerebellar, right thalamic and paramedian parietal lobe microhemorrhages.
PMH: HTN, DLP, GERD, right LS radiculopathy, glaucoma, left hip labral tear, Lichen planus, BCC, SCC, psoriasis, h/o migraine without aura
PSH:bilateral cataract surgery, right knee arthroscopy, L ankle ORIF, R bunionectomy with osteotomy
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
FH: Father�multiple sclerosis
All: Beta-mirtha
ROS: Constitutional: Negative. Negative for chills, fever and unexpected weight change.
HENT: Positive for chronic tinnitus
Eyes: Negative. Negative for photophobia, pain and visual disturbance.
Respiratory: Negative for cough, choking and shortness of breath.
Cardiovascular: Negative for chest pain, palpitations and leg swelling.
Gastrointestinal: Positive for dysphagia to solid, chronic constipation
Endocrine: Negative. Negative for cold intolerance.
Genitourinary: Negative for dysuria, flank pain and urgency.
Musculoskeletal: Positive for chronic right leg pain, left hip pain
Skin: Negative for rash.
Allergic/Immunologic: Negative. Negative for immunocompromised state.
Neurological: Positive for right leg weakness, distal paresthesias, transient vertigo
Psychiatric/Behavioral: Negative for behavioral problems, confusion and hallucinations.
General: Well developed. In no acute distress.
Cardio: Regular rate and rhythm without murmur. Extremities are without cyanosis or edema.
Neuro:
Mental Status: Alert, oriented to person, place, and date. Normal attention and recall. Good fund of knowledge. Follows complex requests across the midline. Comprehension, naming, and repetition intact.
Cranial Nerves: Pupils are equally round, surgical. EOMs full. Visual toscano full to confrontation. Horizontal nystagmus on left lateral gaze. No ptosis. V1-V3 intact to light touch and pinprick bilaterally, symmetric. Face symmetric. Reduced
hearing on the left. No lateralization on Hernandez's testing the palate elevated well. SCMs and traps 5/5. Tongue midline. No dysarthria. No dysphonia
Motor: Normal bulk and tone. No pronator or arm drift. Strength 5/5 throughout. No clonus.
Coordination: No dysmetria or tremor.
Gait: deferred
Assessment and Plan:
I. 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
II. Multifocal chronic cerebral microhemorrhages. Differential diagnosis includes hypertensive versus cerebral amyloid angiopathy
III. Chronic R L 5 radiculopathy
IV. Ambulatory dysfunction
-Telemetry monitoring
-Fall precautions
-Continue Aspirin 81 mg once a day.
-Lipitor 40 mg nightly
-Will follow up TEJAS results
-PT.
-Outpatient NCS/EMG(scheduled)
-DVT prophylaxis.
I personally reviewed all radiology and labs along with past medical records pertinent to current medical problems. Total time spent in patient care is 35 minutes.
Thank you for allowing us to participate in the care of this patient. We will continue to follow. Please do not hesitate to contact us with any questions or concerns.
Objective Data
Vital Signs
Temp Pulse Resp BP Pulse Ox
36.6 C 68 14 129/52 96
05/31/24 07:33 05/31/24 07:33 05/31/24 07:33 05/31/24 07:33 05/31/24 07:33
Lab Results
05/31/24 05:12
05/31/24 05:12
PT 12.7 Sec (11.4-14.6) 05/29/24 11:49
INR 0.93 05/29/24 11:49
Sodium 138 mmol/L (135-145) 05/31/24 05:12
Potassium 4.4 mmol/L (3.5-5.1) 05/31/24 05:12
BUN 19 mg/dl (7-17) H 05/31/24 05:12
Glucose 94 mg/dl (70-99) 05/31/24 05:12
Calcium 9.1 mg/dl (8.4-10.2) 05/31/24 05:12
LDL Cholesterol, Calc 78 mg/dl 05/30/24 07:04
Patient Allergies
Beta-Blockers (Beta-Adrenergic Bloc Allergy (Verified 05/29/24 17:25)
PSORIASIS
Vital Signs and Labs
-
Vital Signs and Labs:
Vital Signs
Temp Pulse Resp BP Pulse Ox
36.6 C 68 14 129/52 96
05/31/24 07:33 05/31/24 07:33 05/31/24 07:33 05/31/24 07:33 05/31/24 07:33
Lab Results
05/31/24 05:12
05/31/24 05:12
PT 12.7 Sec (11.4-14.6) 05/29/24 11:49
INR 0.93 05/29/24 11:49
Sodium 138 mmol/L (135-145) 05/31/24 05:12
Potassium 4.4 mmol/L (3.5-5.1) 05/31/24 05:12
BUN 19 mg/dl (7-17) H 05/31/24 05:12
Glucose 94 mg/dl (70-99) 05/31/24 05:12
Calcium 9.1 mg/dl (8.4-10.2) 05/31/24 05:12
LDL Cholesterol, Calc 78 mg/dl 05/30/24 07:04
Medications
-
Medications:
Generic Name Dose Route Start Last Admin
Trade Name Freq PRN Reason Stop Dose Admin
Acetaminophen 500 mg 05/29/24 17:20
Acetaminophen 500 Mg Tablet PO 06/26/24 17:19
Q6HPRN PRN
pain
Amitriptyline HCl 50 mg 05/29/24 22:00 05/30/24 22:28
Amitriptyline 50 Mg Tablet PO 06/26/24 21:59 50 mg
HS ANGELA Administration
Amlodipine Besylate 2.5 mg 05/30/24 08:00 05/30/24 08:34
Amlodipine 2.5 Mg Tablet PO 06/27/24 07:59 2.5 mg
DAILY ANGELA Administration
Aspirin 81 mg 05/29/24 16:00 05/31/24 07:53
Aspirin 81 Mg Chewable Tablet PO 06/26/24 15:59 81 mg
DAILY ANGELA Administration
Atorvastatin Calcium 40 mg 05/30/24 18:00 05/30/24 17:03
Atorvastatin (Lipitor) 40 Mg Tablet PO 06/27/24 17:59 40 mg
QPM ANGELA Administration
Bisacodyl 10 mg 05/29/24 17:20
Bisacodyl 10 Mg Rectal Suppository RECTAL 06/26/24 17:19
[id number] PRN
constipation
Enoxaparin Sodium 40 mg 05/29/24 18:00 05/30/24 17:03
Enoxaparin Sodium 40 Mg/0.4 Ml Syringe SC 06/26/24 17:59 40 mg
QPM ANGELA Administration
Lisinopril 40 mg 05/30/24 08:00 05/30/24 08:34
Lisinopril 20 Mg Tablet PO 06/27/24 07:59 40 mg
DAILY ANGELA Administration
Meclizine HCl 25 mg 05/29/24 17:20 05/29/24 20:30
Meclizine 25 Mg Tablet PO 06/26/24 17:19 25 mg
Q6HPRN PRN Administration
Dizzeness
Multivitamins Therapeutic 1 tablet 05/30/24 08:00 05/31/24 07:53
Multivitamin Tablet PO 06/27/24 07:59 1 tablet
DAILY ANGELA Administration
Ondansetron HCl 4 mg 05/29/24 17:20 05/29/24 20:46
Ondansetron 4 Mg/2 Ml Vial IV 06/26/24 17:19 4 mg
Q6HPRN PRN Administration
nausea and vomiting
Pantoprazole Sodium 40 mg 05/30/24 08:00 05/31/24 07:53
Pantoprazole 40 Mg Delayed Release Tablet PO 06/27/24 07:59 40 mg
DAILY ANGELA Administration
Polyethylene Glycol 17 grams 05/29/24 17:20
Polyethylene Glycol Powder 17 Grams Packet PO 06/26/24 17:19
DAILYPRN PRN
constipation
Senna/Docusate Sodium 1 tablet 05/29/24 17:20
Docusate W/Senna (Alix-Colace) Tablet PO 06/26/24 17:19
BIDPRN PRN
constipation
Sodium Chloride 0 flush 05/29/24 18:00
Sodium Chloride 0.9% (Flush) Syringe IV 06/26/24 17:59
PER PROTOCOL ANGELA
Home Medications
-
Home Medications
amitriptyline 50 mg tablet 50 mg PO HS depression/sleep 02/25/13
lisinopril 40 mg tablet 40 mg PO DAILY Blood Pressure 02/25/13
simvastatin 20 mg tablet 20 mg PO QPM High Cholesterol 02/25/13
amlodipine 2.5 mg tablet 2.5 mg PO DAILY Blood Pressure 12/15/14
acetaminophen 500 mg tablet (Tylenol Extra Strength) 500 mg PO TID Pain 05/29/24
omeprazole 20 mg tablet,delayed release 20 mg PO DAILY Gastrointestinal Issue 05/29/24
therapeutic multivitamin 1 tab PO DAILY Supplement 05/29/24
--- NOTE | 2024-05-31 09:47 | CM ---
notified of following med prices:Farxiaga not covered, Entresco and Jardiance both $22.00 copay
PT OT needed for discharge planning.
IMM given yesterday Signed on chart.
PLAN PT OT needed for dc planning
--- NOTE | 2024-05-31 12:16 | W.PN.UPDATE ---
Update Note
Progress Note Update
TEJAS (full report to follow)
moderately reduced LVF
No thrombus in LA appendage
Mild AR
Saline bubble sty=udy .no clear evidenceof in=tracardiact shunting. Few bubbles seen in LA very late after injection.
--- NOTE | 2024-05-31 12:47 | W.PN.HOSP.TC ---
Today's Communication/Plan
-
Cleared for discharge after seen by physiatry
Assessment / Plan
Assessment / Plan
IMPRESSION:
Patient is 83 years old with history of hypertension and hyperlipidemia who came with dizziness and vertigo, will be admitted to rule out posterior stroke
Assessment/plan:
Acute/subacute right cerebellar hemisphere infarct
presented to the ER with dizziness.
CT head done in the ER shows no acute intracranial abnormality
MRi brain shows:
Focal areas of acute to subacute infarction involving the right cerebellar hemisphere. In the medial right cerebellar hemisphere, there is a small focus of associated hemorrhage.
Blood work unremarkable
Continue cardiac rehabilitation specialist
Frequent neurocheck.
Hemoglobin A1c 5.5, fasting lipid panel triglyceride 153, total cholesterol 174, LDL 78, HDL 66
PT/OT consult
Neurology consult .
Social service for discharge for discharge.
CTA head and neck shows:
No hemodynamically significant stenosis of the carotid or vertebral arterial system bilaterally and no findings to suggest internal carotid artery or vertebral artery dissection bilaterally.
Mildly dominant left vertebral artery.
Tortuous basilar artery.
Cannot exclude some narrowing/stenosis of the left PICA.
Approximate 0.9 cm calcified left lobe thyroid nodule.
Echo shows:
Normal left ventricular chamber size. Mildly to moderately left ventricular
ejection fraction is 35-40%. reduced left ventricular systolic function by
visual assessment. The apex, mid to distal inferoseptal, mid to distal lateral,
mid to distal inferolateral and distal anterior cuadra are hypokinetic. Mild
left ventricular hypertrophy.
No significant valvular disease.
No cardiac source of embolus identified consider TEJAS if clinically indicated
Appreciate neurology input.
05/31
Status post TEJAS shows no source of intracardiac thrombus
Cardiomyopathy
Echocardiogram shows EF 35 to 40%.
no sign of Volume overload.
Patient with Elevated troponin.
Patient denies chest pain.
Surgery input.
Patient will need eventually ischemic workup
History of hypertension
Resume home meds
History of hyperlipidemia
Continue statin
CODE STATUS: Full code
DVT prophylaxis: Lovenox
Diet: Regular diet
Total time spent on today's encounter was 65 minutes which included time spent in counseling the patient/family regarding diagnosis and treatment plan as listed above, goals of care, and symptom management. Case was discussed with nursing staff,
specialists, and care coordinators/case management. All labs and imaging personally reviewed by me. Remainder the time spent in detailed review of previous records, lab data, imaging, and other medical provider documentation.
Anticipated Discharge: Within 24 hours
Subjective/Interval History
-
Date of Service: May 31, 2024
Patient seen and examined at bedside, denies any chest pain or shortness of breath, no abdominal pain, no nausea, no vomiting, no diarrhea or constipation.
Had TEJAS today with no sign of intracardiac thrombosis.
Objective Data
-
Labs:
Laboratory Results
05/31/24
05:12
WBC 7.4
Hgb 13.4
Hct 39.2
Plt Count 203
Sodium 138
Potassium 4.4
Chloride 107
Carbon Dioxide 26
BUN 19 H
Creatinine 0.7
Glucose 94
Calcium 9.1
Vital Signs:
Vital Signs
Temp Pulse Resp BP Pulse Ox
98.3 F 90 16 130/70 96
05/31/24 10:58 05/31/24 10:58 05/31/24 10:58 05/31/24 10:58 05/31/24 10:58
I&O
05/30/24 05/31/24 06/01/24
06:59 06:59 06:59
Intake Total 480 / 480 720 / 720
Balance 480 / 480 720 / 720
Physical Exam
-
General: Well Developed, Well Nourished, No Apparent Distress and Comfortable
HEENT: Normocephalic, Atraumatic, Moist Mucous Membranes, No Ptosis, PERRLA and Nose Appears Normal
Respiratory: Clear to Auscultation and Non Labored Respirations
Cardiac: Regular Rhythm and S1/S2
Breast: Deferred by me
GI: Soft, Nontender, Nondistended and Normal Bowel Sounds
Genito-urinary: No Costovertebral Tender
Musculoskeletal: No Clubbing, No Cyanosis and No Edema
Skin: Warm
Neuro: Awake, Alert, Oriented, AO x 3 and No Motor Deficits
Psych: Calm
Data Reviewed
-
Diagnostic Radiology: Image personally visualized and interpreted and Report Reviewed by me
CT Scan: Image personally visualized and interpreted and Report Reviewed by me
Ultrasound: Image personally visualized and interpreted and Report Reviewed by me
MRI: Image personally visualized and interpreted and Report Reviewed by me
Medical Tests (Nuc Med, Echo etc): Image personally visualized and interpreted and Report Reviewed by me
Labs: Labs Reviewed by me
Old Records: Reviewed
--- NOTE | 2024-05-31 15:54 | W.PN.CARDCBS ---
Today's Communication / Plan
-
No cardioembolic source of stroke identified
We will arrange for 14-day outpatient monitor to assess for A-fib
Impression / Plan
-
PCP: Dr. Howard
Archery Instructor: None prior to arrival, initially seen by Dr. Bolden
Impression:
Presented with dizziness/vomiting
Acute/subacute R cerebellar CVA
Cardiomyopathy, EF 35-40%
Elevated troponin
Atrial tachycardia
HTN
HLD
Vertigo
Echo 05/30/2024: EF 35-40%, the apex, mid to distal ineroseptal, mid to distal lateral, mid to distal inferolateral and distal anterior cuadra are hypokinetic, mild LVH, no significant valvular disease. No cardiac source of embolus identified.
Plan:
-Presented with dizziness and vomiting. Found to have acute/subacute R cerebellar CVA, felt to be embolic in etiology per neurology.
-No afib on review of telemetry, however atach/ectopic atrial rhythm noted. Continue to follow on tele while admitted. Will need 14 day R[employer] Star monitor at discharge.
-TEJAS earlier today did not identify a cardioembolic source of stroke
-Agree with ASA/high intensity statin
-Echo 05/30 revealed new CM with EF 35-40%
-Reports prior intolerance to beta blockers as metoprolol caused a years long flare of psoriasis. Does not wish to be re-trialed on beta mirtha at this time.
-On lisinopril 40mg daily and amlodipine 2.5mg daily as OP. On hold currently to allow for permissive HTN given CVA.
-Once ok per neuro, would resume lisinopril
-Troponin elevation noted, peaking at 0.099 and trending down thereafter. Continues to deny chest pain.
-Given new CM and elevated troponin, would plan for eventual ischemic evaluation, but would holding off in the near term given acute stroke. On aspirin/statin as above.
Stable for discharge from my perspective
Will arrange outpatient monitor and follow-up
HPI: Aviva is an 83 year old female with PMH of hypertension, hyperlipidemia, and vertigo. She notes history of somewhat chronic vertigo and dizziness, but yesterday also had vomiting which was new, so she came to ER for evaluation. In ER, she
had head CT and CTA of head/neck which were unremarkable. Brain MRI revealed acute/subacute infarcts of the R cerebellum. Also noted to have multifocal chronic cerebral microhemorrhages. She was started on aspirin and high intensity statin. She
notes no prior cardiac history and has had no palpitations, chest pain, or SOB. Echo competed 05/30/2024 and revealed new CM with EF 35-40% resulting in cardiology consult. She feels back to baseline at this time and denies any further
dizziness/lightheadedness or vomiting.
Progress Note - Archery Instructor
Subjective
Date of Service: May 31, 2024
No acute overnight events. Patient is resting comfortably in bed. No cardiac complaints.
Objective
Labs:
05/31/24 05:12
05/31/24 05:12
Labs
Hgb 13.4 g/dL (12.0-16.0) 05/31/24 05:12
Hct 39.2 % (37.0-47.0) 05/31/24 05:12
Plt Count 203 10^3/uL (130-400) 05/31/24 05:12
PT 12.7 Sec (11.4-14.6) 05/29/24 11:49
INR 0.93 05/29/24 11:49
Sodium 138 mmol/L (135-145) 05/31/24 05:12
Potassium 4.4 mmol/L (3.5-5.1) 05/31/24 05:12
BUN 19 mg/dl (7-17) H 05/31/24 05:12
Creatinine 0.7 mg/dL (0.6-1.0) 05/31/24 05:12
Glucose 94 mg/dl (70-99) 05/31/24 05:12
Troponins
05/29/24 05/29/24 05/29/24
11:49 14:32 20:57
Troponin I 0.086 H* 0.099 H* 0.090 H*
05/30/24
07:04
Troponin I 0.083 H*
Vital Signs and I&O:
Vital Signs
Temp Pulse Resp BP Pulse Ox
99 F 71 14 118/59 98
05/31/24 15:36 05/31/24 15:36 05/31/24 15:36 05/31/24 15:36 05/31/24 15:36
Vital Signs
Temp Pulse Resp BP Pulse Ox
99 F 71 14 118/59 98
05/31/24 15:36 05/31/24 15:36 05/31/24 15:36 05/31/24 15:36 05/31/24 15:36
Intake & Output
05/29/24 05/30/24 05/31/24 06/01/24
06:59 06:59 06:59 06:59
Intake Total 480 / 480 720 / 720
Balance 480 / 480 720 / 720
Physical Exam
Physical Exam
Gen: NAD, AA
HEENT: NC/AT, sclera anicteric
Neck: No JVD
CV: RRR, NL s1/s2
Lungs: CTAB
Abd: S/ND
Ext: No LE edema
Skin: Warm, dry
Neuro: Non-focal
[2024-05-31] MEDS: LIPITOR 40 MG PO (17:32)
[2024-05-31] MEDS: LOVENOX 40 MG SC (17:32)
[2024-05-31] MEDS: ELAVIL 50 MG PO (22:39)
[2024-06-01] VITALS (7 sets, daily range): BP systolic 113–159; BP diastolic 54–89; PULSE 78–93; O2SAT 96
[2024-06-01] MEDS: PROTONIX 40 MG PO (08:24)
[2024-06-01] MEDS: THERAGRAN 1 TABLET PO (08:24)
[2024-06-01] MEDS: LOW STRENGTH ASPIRIN 81 MG PO (08:24)
[2024-06-01] MEDS: TYLENOL 500 MG PO (08:29)
--- NOTE | 2024-06-01 09:21 | CON.MR ---
Documented by User: Carolee Caro MD, Resident 06/01/24 15:21
Medical History
-
History of Present Illness:
Patient is a 83 year old female with past medical history of hypertension, hypercholesterolemia who came to the hospital from [facility] with headache, vertigo, nausea and vomiting. Patient has chronic pain in right leg and had EMG scheduled in 4
days. Initial blood work in the ER was unremarkable except for mildly elevated troponin. CT head done in the ER showed no acute intracranial abnormality. NIHSS was 0. CTA of head/neck unremarkable. Brain MRI was suggestive of acute right PICA/SCA
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 No cardiac source of embolus was identified on echo (TTE and TEJAS). Cardiology and neurology on board. No evidence of atrial fibrillation
on tele, brief run of atrial tachycardia. Plan for 14 day RhythmStar monitor at d/c and if negative consider LINQ implantable monitor.
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 Patient is on Aspirin, Lipitor, Meclizine prn and Lovenox for DVT prophylaxis.
Given CVA and PFO on TEJAS, bilateral lower extremity duplex ultrasound was ordered which showed no evidence for lower extremity venous thrombosis.
Echo (TTE): left ventricular ejection fraction is 35-40%. The apex, mid to distal inferoseptal, mid to distal lateral, mid to distal inferolateral and distal anterior cuadra are hypokinetic. Mild left ventricular hypertrophy. No significant
valvular disease. No cardiac source of embolus identified.
Echo (TEJAS): Moderately reduced left ventricular function with more pronounced hypokinesis of the distal portions of the LV and left ventricular apex. Mild aortic regurgitation. Mild tricuspid regurgitation. A small number of bubbles is seen crossing
into the left atrium on saline contrast/bubble study suggestive of PFO.
Past medical history: HTN, DLP, GERD, right LS radiculopathy, glaucoma, left hip labral tear, Lichen planus, BCC, SCC, psoriasis, h/o migraine without aura
Past surgical history: bilateral cataract surgery, right knee arthroscopy, L ankle ORIF, R bunionectomy with osteotomy
Family history: Not pertinent
Social History:
Functional Level Premorbidly: Patient lives alone at [facility], patient was independent with ADLs and ambulation, patient had been using a walker in the past couple weeks for ambulation but used a cane prior to that.
Functional Level Currently: Minimal assist for grooming, moderate assist for toileting, supervision for lower extremity self-care, min assist for transfer, supervision for mobility
Tobacco: Non-smoker
Alcohol: Denies
Drug use: Denies
Lives with: Alone
24-hour assistance available: No
Number of floors: 1
# steps to enter: 0
Driving: Yes
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
Review of Systems:
Constitutional: (x) Normal _
Eye: (x) Normal _
Ear/Nose/Throat: (x) Normal _
Respiratory: (x) Normal _
Cardiovascular: (x) Normal _
Gastrointestinal: (x) Normal _
Genitourinary: (x) Normal _
Musculoskeletal: (x) Abnormal _ right leg pain
Integumentary: (x) Normal _
Neurologic: (x) Abnormal _ altered sensation on b/l distal lower extremity, patient leans to right when standing
Psychiatric: (x) Normal _
Endocrine: (x) Normal _
Hematologic/Lymphatic: (x) Normal _
Allergic/Immunologic: (x) Normal _
Allergies / Home Medications
Allergy/AdvReac Type Severity Reaction Status Date / Time
Beta-Blockers Allergy PSORIASIS Verified 05/29/24 17:25
(Beta-Adrenergic Bloc
�Medication �Instructions �Recorded �Confirmed �Last Taken �Type
amitriptyline 50 mg tablet 50 mg PO HS depression/sleep 02/25/13 05/29/24 05/27/24 History
lisinopril 40 mg tablet 40 mg PO DAILY Blood Pressure 02/25/13 05/29/24 05/28/24 History
simvastatin 20 mg tablet 20 mg PO QPM High Cholesterol 02/25/13 05/29/24 05/28/24 History
amlodipine 2.5 mg tablet 2.5 mg PO DAILY Blood Pressure 12/15/14 05/29/24 05/28/24 History
acetaminophen 500 mg tablet 500 mg PO TID Pain 05/29/24 05/29/24 05/28/24 History
(Tylenol Extra Strength)
omeprazole 20 mg tablet,delayed 20 mg PO DAILY Gastrointestinal 05/29/24 05/29/24 05/28/24 History
release Issue
therapeutic multivitamin 1 tab PO DAILY Supplement 05/29/24 05/29/24 Unknown History
Physical Exam
Active Medications
Generic Name Dose Route Start Last Admin
Trade Name Freq PRN Reason Stop Dose Admin
Acetaminophen 500 mg 05/29/24 17:20 06/01/24 08:29
Acetaminophen 500 Mg Tablet PO 06/26/24 17:19 500 mg
Q6HPRN PRN Administration
pain
Amitriptyline HCl 50 mg 05/29/24 22:00 05/31/24 22:39
Amitriptyline 50 Mg Tablet PO 06/26/24 21:59 50 mg
HS ANGELA Administration
Amlodipine Besylate 2.5 mg 05/30/24 08:00 05/30/24 08:34
Amlodipine 2.5 Mg Tablet PO 06/27/24 07:59 2.5 mg
DAILY ANGELA Administration
Aspirin 81 mg 05/29/24 16:00 06/01/24 08:24
Aspirin 81 Mg Chewable Tablet PO 06/26/24 15:59 81 mg
DAILY ANGELA Administration
Atorvastatin Calcium 40 mg 05/30/24 18:00 05/31/24 17:32
Atorvastatin (Lipitor) 40 Mg Tablet PO 06/27/24 17:59 40 mg
QPM ANGELA Administration
Bisacodyl 10 mg 05/29/24 17:20
Bisacodyl 10 Mg Rectal Suppository RECTAL 06/26/24 17:19
[id number] PRN
constipation
Enoxaparin Sodium 40 mg 05/29/24 18:00 05/31/24 17:32
Enoxaparin Sodium 40 Mg/0.4 Ml Syringe SC 06/26/24 17:59 40 mg
QPM ANGELA Administration
Lisinopril 40 mg 05/30/24 08:00 05/30/24 08:34
Lisinopril 20 Mg Tablet PO 06/27/24 07:59 40 mg
DAILY ANGELA Administration
Meclizine HCl 25 mg 05/29/24 17:20 05/29/24 20:30
Meclizine 25 Mg Tablet PO 06/26/24 17:19 25 mg
Q6HPRN PRN Administration
Dizzeness
Multivitamins Therapeutic 1 tablet 05/30/24 08:00 06/01/24 08:24
Multivitamin Tablet PO 06/27/24 07:59 1 tablet
DAILY ANGELA Administration
Ondansetron HCl 4 mg 05/29/24 17:20 05/29/24 20:46
Ondansetron 4 Mg/2 Ml Vial IV 06/26/24 17:19 4 mg
Q6HPRN PRN Administration
nausea and vomiting
Pantoprazole Sodium 40 mg 05/30/24 08:00 06/01/24 08:24
Pantoprazole 40 Mg Delayed Release Tablet PO 06/27/24 07:59 40 mg
DAILY ANGELA Administration
Polyethylene Glycol 17 grams 05/29/24 17:20
Polyethylene Glycol Powder 17 Grams Packet PO 06/26/24 17:19
DAILYPRN PRN
constipation
Senna/Docusate Sodium 1 tablet 05/29/24 17:20
Docusate W/Senna (Alix-Colace) Tablet PO 06/26/24 17:19
BIDPRN PRN
constipation
Sodium Chloride 0 flush 05/29/24 18:00
Sodium Chloride 0.9% (Flush) Syringe IV 06/26/24 17:59
PER PROTOCOL ANGELA
Vital Signs
Temp Pulse Resp BP Pulse Ox
98 F 63 14 116/54 96
06/01/24 07:16 06/01/24 07:16 06/01/24 07:16 06/01/24 07:16 06/01/24 07:16
Height 5 ft 4 in
Actual Weight 74.117 kg
Body Mass Index (BMI) 28.1
Physical Exam
Physical Exam:
General Appearance/Observation: Well-developed, well-nourished individual in no apparent distress.
Pain/Comfort Assessment: Denies
Mood/Affect: Appropriate
Integumentary/Operative Site:
Pressure Ulcer: absent
Other Type of Wound: absent
Eyes: Conjunctiva/Lids: normal Pupils: pupils equal round and reactive to light and accommodation. Horizontal nystagmus on left lateral gaze
Ears/Nose/Throat: oral mucosa moist, throat clear. Lips/Teeth/Gums: normal
Neck: No muscle spasm or tenderness
Cardiovascular: Heart: regular, no murmur
Pulses: dorsalis pedis 2+ bilaterally
Respiratory: Respiratory Effort/Chest Expansion: normal Auscultation: Clear to auscultation bilaterally
Gastrointestinal: abdomen not tender, no distension, normal abdominal bowel sounds
Genitourinary: No Sagastume
Rectal Exam: Deferred
Extremities: Edema: None Cyanosis: None Trophic changes: None
Neurology Exam:
Orientation: Alert, Oriented to self, Time, Place
Memory: Intact immediately and at 3 minutes
Higher cortical function
Speech: Intact
Repetition: Intact
Comprehension: Intact
Two step command: Intact
Naming: Intact
Cranial Nerves:
CNII: Pupillary light reflex: Intact Visual Field: Intact
CN III, IV, : Extraocular muscles: Intact
CN V: Facial Sensation at Forehead: Intact , Maxilla: Intact, Mandible: Intact
CN VII: Facial movement: Symmetric
CN VIII: Hearing: Normal
CN IX/X: Speech & swallow: Normal, Position of Uvula: Midline
CN XI: Shoulder shrug: Symmetric
CN XII: Tongue protrusion: Midline
Sensory:
Light touch: Intact in bilateral upper and lower extremities
Reflexes:
Biceps: 2+ bilaterally
Brachioradialis: 2+ bilaterally
Triceps: 2+ bilaterally
Patellar: 2+ bilaterally
Achilles: 2+ bilaterally
Babinski: Downgoing bilaterally
Clonus: None
Greg: Negative bilaterally
Cerebellar: Dysmetria/Ataxia: None
Musculoskeletal:
Motor: (Manual muscle scale 0-5)
Muscle SA EF WE EE FF FA HF KE DF EHL PF
Right 4 5 4 5 5 5 4 5 5 5 5
Left 4 5 4 5 5 5 4+ 5 5 5 5
Tone: Normal in all extremities
Range of Motion: Passively within normal limits in all extremities
Lab Results
05/31/24 05:12
05/31/24 05:12
WBC 7.4 10^3/uL (4.8-10.8) 05/31/24 05:12
Hgb 13.4 g/dL (12.0-16.0) 05/31/24 05:12
Hct 39.2 % (37.0-47.0) 05/31/24 05:12
MCV 95.8 fL (81.0-99.0) 05/31/24 05:12
Plt Count 203 10^3/uL (130-400) 05/31/24 05:12
PT 12.7 Sec (11.4-14.6) 05/29/24 11:49
INR 0.93 05/29/24 11:49
Sodium 138 mmol/L (135-145) 05/31/24 05:12
Potassium 4.4 mmol/L (3.5-5.1) 05/31/24 05:12
Chloride 107 mmol/L (98-107) 05/31/24 05:12
Carbon Dioxide 26 mmol/L (22-30) 05/31/24 05:12
BUN 19 mg/dl (7-17) H 05/31/24 05:12
Creatinine 0.7 mg/dL (0.6-1.0) 05/31/24 05:12
eGFR > 60.00 05/31/24 05:12
Glucose 94 mg/dl (70-99) 05/31/24 05:12
Hemoglobin A1c 5.5 % (4.0-5.6) 05/30/24 07:04
Calcium 9.1 mg/dl (8.4-10.2) 05/31/24 05:12
Total Bilirubin 0.6 mg/dl (0.2-1.3) 05/29/24 11:49
AST 24 U/L (14-36) 05/29/24 11:49
ALT 18 U/L (0-35) 05/29/24 11:49
Alkaline Phosphatase 70 U/L (38-126) 05/29/24 11:49
Total Protein 5.8 g/dl (6.3-8.2) L 05/29/24 11:49
Albumin 3.7 g/dl (3.5-5.0) 05/29/24 11:49
Diagnostic Results
As per HPI.
Assessment / Plan
Plan
PM&R PT/OT to increase independence with ADLs, improve balance, coordination, endurance, strength, mobility, community reintegration, decreased burden of care on others and family education.
CVA: Secondary prophylaxis with aspirin, statin, and blood pressure control (SBP less than 180 and diastolic less than 100 to participate with therapy for ischemic stroke). Continue to monitor neurologic status.
Peripheral polyneuropathy: Patient with altered sensation on b/l LE. Suggest getting an EMG/nerve conduction study which can be done inpatient or if necessary as an outpatient. This will help limit the differential diagnosis. Common etiologies
include diabetes, alcohol use, B12, thyroid disorder, autoimmune concerns. It is reasonable to check a B12, TSH, and hemoglobin A1c to start. Patient at high risk of falling with subsequent significant neuropathy.
Vertigo: Patient is currently on prn meclizine. Can consider switching to standing meclizine and taper as needed.
HTN: Continue medications, monitor closely
HLD: Continue statin
CHF: EF 35-40%, monitor fluid status
GERD: Continue omeprazole
Psych: Monitor mood, adjust medications as needed.
Skin: monitor for pressure sores/rashes/lesions.
Pain: acetaminophen or oxycodone as needed.
Bowel: Colace and Senna, PRN bisacodyl.
Bladder: Time void, PVRs, PRN straight cath.
DVT Prophylaxis: Lovenox
Safety: Continue to reinforce assistance with all transfers.
Code Status: Full code
Dispo (date/plan/equipment needs): Acute rehab. Social history reviewed.
Functional and Medical Goals: Modified Independent with ADL�s, ambulation, transfers
Summary
-
Summary of recommendations:
- Discharge Destination: Acute rehab
Thank you for allowing me to care for your patient. Please contact me with any questions or concerns.
Comments
-
This note was dictated using a voice recognition system. Please excuse any typographical errors from wardsperson. If you believe there are any discrepancies, please notify our office.

Documented by User: Kolby Garcia MD 06/01/24 20:37
Consultation
Consultation Request
Requesting Provider: Dr. Kelly Hernandez
Performing Provider: Dr. Garcia
Reason for Consultation: Stroke
Medical History
-
Chief Complaint: Stroke
Physical Exam
Physical Exam
Physical Exam:
General Appearance/Observation: Well-developed, well-nourished female in no apparent distress.
Pain/Comfort Assessment: Denies
Mood/Affect: Appropriate
Integumentary/Operative Site: no wounds noted during course of exam.
Eyes: Conjunctiva/Lids: normal Pupils: pupils equal round and reactive to light and accommodation. Horizontal nystagmus on left lateral gaze
Ears/Nose/Throat: oral mucosa moist, throat clear. Lips/Teeth/Gums: normal
Neck: No muscle spasm or tenderness
Cardiovascular: Heart: regular, no murmur
Pulses: dorsalis pedis 2+ bilaterally
Respiratory: Respiratory Effort/Chest Expansion: normal Auscultation: Clear to auscultation bilaterally
Gastrointestinal: abdomen not tender, no distension, normal abdominal bowel sounds
Genitourinary: No Sagastume
Rectal Exam: Deferred
Extremities: Edema: None Cyanosis: None Trophic changes: None
Neurology Exam:
Orientation: Alert, Oriented to self, Time, Place
Memory: Intact for recent medical concerns
Repetition: Intact
Comprehension: Intact
Two step command: Intact
Naming: Intact
Cranial Nerves:
CNII: Pupillary light reflex: Intact Visual Field: Intact
CN III, IV, : Extraocular muscles: Intact
CN V: Facial Sensation at Forehead: Intact , Maxilla: Intact, Mandible: Intact
CN VII: Facial movement: Symmetric
CN VIII: Hearing: Normal
CN IX/X: Speech & swallow: Normal, Position of Uvula: Midline
CN XI: Shoulder shrug: Symmetric
CN XII: Tongue protrusion: Midline
Sensory:
Light touch: Intact in bilateral upper and lower extremities
Reflexes:
Biceps: 2+ bilaterally
Brachioradialis: 2+ bilaterally
Triceps: 2+ bilaterally
Patellar: 2+ bilaterally
Achilles: 2+ bilaterally
Babinski: Downgoing bilaterally
Clonus: None
Greg: Negative bilaterally
Cerebellar: Dysmetria/Ataxia: None
Musculoskeletal: Motor: (Manual muscle scale 0-5)
Muscle SA EF WE EE FF FA HF KE DF EHL PF
Right 4 5 5 5 5 4 4 5 5 5 5
Left 4 5 5 5 5 4 4+ 5 5 5 5
Tone: Normal in all extremities
Range of Motion: Passively within normal limits in all extremities
Assessment / Plan
Assessment
83 R handed F PMH (HTN, DLP, GERD, right LS radiculopathy, glaucoma, left hip labral tear, Lichen planus, BCC, SCC, psoriasis, h/o migraine without aura) with 05/29/24 headache, vertigo, nausea and vomiting from acute right PICA/SCA infarct in the
medial right cerebellar region, and right thalamic and paramedian parietal lobe microhemorrhages with PFO but no DVT and no arrhythmia with ADL and ambulatory dysfunction.
Plan
PM&R PT/OT to increase independence with ADLs, improve balance, coordination, endurance, strength, mobility, community reintegration, decreased burden of care on others and family education.
CVA: Secondary prophylaxis with aspirin (not on plavix), statin, and blood pressure control (SBP less than 180 and diastolic less than 100 to participate with therapy for ischemic stroke). Continue to monitor neurologic status.
- Has PFO with no DVT.
- Microhemorrhages likely secondary to HTN or amyloid per neuro
Peripheral polyneuropathy: Patient with altered sensation on b/l LE. Suggest getting an EMG/nerve conduction study which can be done as an outpatient. This will help limit the differential diagnosis. Common etiologies include diabetes, alcohol use,
B12, thyroid disorder, autoimmune concerns. It is reasonable to check a B12, and TSH. Hemoglobin A1c is good. Patient at risk of falling with neuropathy.
Vertigo: Patient is currently on prn meclizine. Not having any symptoms at this time.
HTN: Amlodipine 2.5 mg daily, lisinopril 40 mg daily, monitor closely
HLD: statin
CHF: EF 35-40%, monitor fluid status
GERD: omeprazole
FEN: Regular diet
Psych: Monitor mood, medications as needed.
Skin: monitor for pressure sores/rashes/lesions.
Pain: acetaminophen as needed.
Bowel: Colace and Senna, PRN bisacodyl.
Bladder: Time void, PVRs, PRN straight cath.
DVT Prophylaxis: Lovenox, mechanical
Safety: Continue to reinforce assistance with all transfers.
Code Status: Full code
Dispo (date/plan/equipment needs): Acute rehab. Social history reviewed.
Functional and Medical Goals: Modified Independent with ADL�s, ambulation, transfers
Summary of recommendations:
Discharge Destination: Acute inpatient rehabilitation
CVA: Secondary prophylaxis with aspirin (not on plavix), statin, and blood pressure control (SBP less than 180 and diastolic less than 100 to participate with therapy for ischemic stroke). Continue to monitor neurologic status.
- Has PFO with no DVT.
- Microhemorrhages likely secondary to HTN or amyloid per neuro
Peripheral polyneuropathy: Patient with altered sensation on b/l LE. Suggest getting an EMG/nerve conduction study which can be done as an outpatient. This will help limit the differential diagnosis. Common etiologies include diabetes, alcohol use,
B12, thyroid disorder, autoimmune concerns. It is reasonable to check a B12, and TSH. Hemoglobin A1c is good. Patient at risk of falling with neuropathy.
I personally performed a history and physical exam of the patient and discussed management with the resident. I reviewed the resident's note and agree with the documented findings and plan of care HPI/CC. Physical exam and plan updated to reflect
my findings and plan. A total of 60 minutes were spent with the patient preparing for the evaluation, obtaining history, performing examination and evaluation, counseling, data review, case management, care coordination, division order analyst, and EMR
documentation.
--- NOTE | 2024-06-01 10:11 | W.PN.NEURO.1 ---
Today's Communication / Plan
-
.
Subjective/Objective
Subjective Data
Date of Service: June 01, 2024
Neurology Follow up Note.
Ms. Silva denies having headaches, change in vision, nausea or vertigo.
TEJAS showed PFO.
TEJAS is scheduled for today.
TTE was unremarkable.
CTA head/neck-no evidence of significant stenosis or dissection.
Brain MRI without angelique (05/30/2024)�acute right PICA/SCA infarct, medial right cerebellar, right thalamic and paramedian parietal lobe microhemorrhages.
PMH: HTN, DLP, GERD, right LS radiculopathy, glaucoma, left hip labral tear, Lichen planus, BCC, SCC, psoriasis, h/o migraine without aura
PSH:bilateral cataract surgery, right knee arthroscopy, L ankle ORIF, R bunionectomy with osteotomy
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
FH: Father�multiple sclerosis
All: Beta-mirtha
ROS: Constitutional: Negative. Negative for chills, fever and unexpected weight change.
HENT: Positive for chronic tinnitus
Eyes: Negative. Negative for photophobia, pain and visual disturbance.
Respiratory: Negative for cough, choking and shortness of breath.
Cardiovascular: Negative for chest pain, palpitations and leg swelling.
Gastrointestinal: Positive for dysphagia to solid, chronic constipation
Endocrine: Negative. Negative for cold intolerance.
Genitourinary: Negative for dysuria, flank pain and urgency.
Musculoskeletal: Positive for chronic right leg pain, left hip pain
Skin: Negative for rash.
Allergic/Immunologic: Negative. Negative for immunocompromised state.
Neurological: Positive for right leg weakness, distal paresthesias, transient vertigo
Psychiatric/Behavioral: Negative for behavioral problems, confusion and hallucinations.
General: Well developed. In no acute distress.
Cardio: Regular rate and rhythm without murmur. Extremities are without cyanosis or edema.
Neuro:
Mental Status: Alert, oriented to person, place, and date. Normal attention and recall. Good fund of knowledge. Follows complex requests across the midline. Comprehension, naming, and repetition intact.
Cranial Nerves: Pupils are equally round, surgical. EOMs full. Visual toscano full to confrontation. Horizontal nystagmus on left lateral gaze. No ptosis. V1-V3 intact to light touch and pinprick bilaterally, symmetric. Face symmetric. Reduced
hearing on the left. No lateralization on Hernandez's testing the palate elevated well. SCMs and traps 5/5. Tongue midline. No dysarthria. No dysphonia
Motor: Normal bulk and tone. No pronator or arm drift. Strength 5/5 throughout. No clonus.
Coordination: No dysmetria or tremor.
Gait: deferred
Assessment and Plan:
I. 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
II. PFO. Risk of Paradoxical Embolism Score-3.0%. Chance that stroke is due to PFO-0%. 20% risk of 2 year recurrence of stroke/TIA.
III. Multifocal chronic cerebral microhemorrhages. Differential diagnosis includes hypertensive versus cerebral amyloid angiopathy
IV. Chronic R L 5 radiculopathy
-Telemetry monitoring
-Fall precautions
-Continue Aspirin 81 mg once a day.
-Lipitor 40 mg nightly
-Please obtain lower extremity Doppler ultrasound
-PT.
-Outpatient NCS/EMG(scheduled)
-DVT prophylaxis.
-OP Holter monitoring/ILR
-OP neurology follow-up
-Please recall neurology service with any questions or concerns.
I personally reviewed all radiology and labs along with past medical records pertinent to current medical problems. Total time spent in patient care is 35 minutes.
Thank you for allowing us to participate in the care of this patient. Please do not hesitate to contact us with any questions or concerns.
Objective Data
Vital Signs
Temp Pulse Resp BP Pulse Ox
36.6 C 63 14 116/54 96
06/01/24 07:16 06/01/24 07:16 06/01/24 07:16 06/01/24 07:16 06/01/24 07:16
Lab Results
05/31/24 05:12
05/31/24 05:12
PT 12.7 Sec (11.4-14.6) 05/29/24 11:49
INR 0.93 05/29/24 11:49
Sodium 138 mmol/L (135-145) 05/31/24 05:12
Potassium 4.4 mmol/L (3.5-5.1) 05/31/24 05:12
BUN 19 mg/dl (7-17) H 05/31/24 05:12
Glucose 94 mg/dl (70-99) 05/31/24 05:12
Calcium 9.1 mg/dl (8.4-10.2) 05/31/24 05:12
LDL Cholesterol, Calc 78 mg/dl 05/30/24 07:04
Patient Allergies
Beta-Blockers (Beta-Adrenergic Bloc Allergy (Verified 05/29/24 17:25)
PSORIASIS
Vital Signs and Labs
-
Vital Signs and Labs:
Vital Signs
Temp Pulse Resp BP Pulse Ox
36.6 C 63 14 116/54 96
06/01/24 07:16 06/01/24 07:16 06/01/24 07:16 06/01/24 07:16 06/01/24 07:16
Lab Results
05/31/24 05:12
05/31/24 05:12
PT 12.7 Sec (11.4-14.6) 05/29/24 11:49
INR 0.93 05/29/24 11:49
Sodium 138 mmol/L (135-145) 05/31/24 05:12
Potassium 4.4 mmol/L (3.5-5.1) 05/31/24 05:12
BUN 19 mg/dl (7-17) H 05/31/24 05:12
Glucose 94 mg/dl (70-99) 05/31/24 05:12
Calcium 9.1 mg/dl (8.4-10.2) 05/31/24 05:12
LDL Cholesterol, Calc 78 mg/dl 05/30/24 07:04
Medications
-
Medications:
Generic Name Dose Route Start Last Admin
Trade Name Freq PRN Reason Stop Dose Admin
Acetaminophen 500 mg 05/29/24 17:20 06/01/24 08:29
Acetaminophen 500 Mg Tablet PO 06/26/24 17:19 500 mg
Q6HPRN PRN Administration
pain
Amitriptyline HCl 50 mg 05/29/24 22:00 05/31/24 22:39
Amitriptyline 50 Mg Tablet PO 06/26/24 21:59 50 mg
HS ANGELA Administration
Amlodipine Besylate 2.5 mg 05/30/24 08:00 05/30/24 08:34
Amlodipine 2.5 Mg Tablet PO 06/27/24 07:59 2.5 mg
DAILY ANGELA Administration
Aspirin 81 mg 05/29/24 16:00 06/01/24 08:24
Aspirin 81 Mg Chewable Tablet PO 06/26/24 15:59 81 mg
DAILY ANGELA Administration
Atorvastatin Calcium 40 mg 05/30/24 18:00 05/31/24 17:32
Atorvastatin (Lipitor) 40 Mg Tablet PO 06/27/24 17:59 40 mg
QPM ANGELA Administration
Bisacodyl 10 mg 05/29/24 17:20
Bisacodyl 10 Mg Rectal Suppository RECTAL 06/26/24 17:19
[id number] PRN
constipation
Enoxaparin Sodium 40 mg 05/29/24 18:00 05/31/24 17:32
Enoxaparin Sodium 40 Mg/0.4 Ml Syringe SC 06/26/24 17:59 40 mg
QPM ANGELA Administration
Lisinopril 40 mg 05/30/24 08:00 05/30/24 08:34
Lisinopril 20 Mg Tablet PO 06/27/24 07:59 40 mg
DAILY ANGELA Administration
Meclizine HCl 25 mg 05/29/24 17:20 05/29/24 20:30
Meclizine 25 Mg Tablet PO 06/26/24 17:19 25 mg
Q6HPRN PRN Administration
Dizzeness
Multivitamins Therapeutic 1 tablet 05/30/24 08:00 06/01/24 08:24
Multivitamin Tablet PO 06/27/24 07:59 1 tablet
DAILY ANGELA Administration
Ondansetron HCl 4 mg 05/29/24 17:20 05/29/24 20:46
Ondansetron 4 Mg/2 Ml Vial IV 06/26/24 17:19 4 mg
Q6HPRN PRN Administration
nausea and vomiting
Pantoprazole Sodium 40 mg 05/30/24 08:00 06/01/24 08:24
Pantoprazole 40 Mg Delayed Release Tablet PO 06/27/24 07:59 40 mg
DAILY ANGELA Administration
Polyethylene Glycol 17 grams 05/29/24 17:20
Polyethylene Glycol Powder 17 Grams Packet PO 06/26/24 17:19
DAILYPRN PRN
constipation
Senna/Docusate Sodium 1 tablet 05/29/24 17:20
Docusate W/Senna (Alix-Colace) Tablet PO 06/26/24 17:19
BIDPRN PRN
constipation
Sodium Chloride 0 flush 05/29/24 18:00
Sodium Chloride 0.9% (Flush) Syringe IV 06/26/24 17:59
PER PROTOCOL ANGELA
Home Medications
-
Home Medications
amitriptyline 50 mg tablet 50 mg PO HS depression/sleep 02/25/13
lisinopril 40 mg tablet 40 mg PO DAILY Blood Pressure 02/25/13
simvastatin 20 mg tablet 20 mg PO QPM High Cholesterol 02/25/13
amlodipine 2.5 mg tablet 2.5 mg PO DAILY Blood Pressure 12/15/14
acetaminophen 500 mg tablet (Tylenol Extra Strength) 500 mg PO TID Pain 05/29/24
omeprazole 20 mg tablet,delayed release 20 mg PO DAILY Gastrointestinal Issue 05/29/24
therapeutic multivitamin 1 tab PO DAILY Supplement 05/29/24
--- NOTE | 2024-06-01 11:24 | W.PN.HOSP.TC ---
Addendum entered and electronically signed by Kelly Hernandez MD 06/01/24 13:31:
Non-ischemic myocardial injury
Original Note:
Today's Communication/Plan
-
Cleared for discharge to rehab today
Assessment / Plan
Assessment / Plan
IMPRESSION:
Patient is 83 years old with history of hypertension and hyperlipidemia who came with dizziness and vertigo, found to have stroke.
MRi brain shows:
Focal areas of acute to subacute infarction involving the right cerebellar hemisphere. In the medial right cerebellar hemisphere, there is a small focus of associated hemorrhage
Seen by cardiology and neurology
Echocardiogram done shows
Normal left ventricular chamber size. Mildly to moderately left ventricular
ejection fraction is 35-40%. reduced left ventricular systolic function by
visual assessment. The apex, mid to distal inferoseptal, mid to distal lateral,
mid to distal inferolateral and distal anterior cuadra are hypokinetic. Mild
left ventricular hypertrophy.
No significant valvular disease.
No cardiac source of embolus identified consider TEJAS if clinically indicated
Status post TEJAS shows no source of intracardiac thrombus.
Will be discharged to rehab on aspirin and high-dose statin.
To follow-up with neurology as outpatient.
Follow-up with cardiology as outpatient for ischemic workup.
Assessment/plan:
Acute/subacute right cerebellar hemisphere infarct
presented to the ER with dizziness.
CT head done in the ER shows no acute intracranial abnormality
MRi brain shows:
Focal areas of acute to subacute infarction involving the right cerebellar hemisphere. In the medial right cerebellar hemisphere, there is a small focus of associated hemorrhage.
Blood work unremarkable
Continue engine monitor
Frequent neurocheck.
Hemoglobin A1c 5.5, fasting lipid panel triglyceride 153, total cholesterol 174, LDL 78, HDL 66
PT/OT consult
Neurology consult .
Social service for discharge for discharge.
CTA head and neck shows:
No hemodynamically significant stenosis of the carotid or vertebral arterial system bilaterally and no findings to suggest internal carotid artery or vertebral artery dissection bilaterally.
Mildly dominant left vertebral artery.
Tortuous basilar artery.
Cannot exclude some narrowing/stenosis of the left PICA.
Approximate 0.9 cm calcified left lobe thyroid nodule.
Echo shows:
Normal left ventricular chamber size. Mildly to moderately left ventricular
ejection fraction is 35-40%. reduced left ventricular systolic function by
visual assessment. The apex, mid to distal inferoseptal, mid to distal lateral,
mid to distal inferolateral and distal anterior cuadra are hypokinetic. Mild
left ventricular hypertrophy.
No significant valvular disease.
No cardiac source of embolus identified consider TEJAS if clinically indicated
Appreciate neurology input.
05/31
Status post TEJAS shows no source of intracardiac thrombus
Cardiomyopathy
Echocardiogram shows EF 35 to 40%.
no sign of Volume overload.
Patient with Elevated troponin.
Patient denies chest pain.
Surgery input.
Patient will need eventually ischemic workup
History of hypertension
Resume home meds
History of hyperlipidemia
Continue statin
CODE STATUS: Full code
DVT prophylaxis: Lovenox
Diet: Regular diet
Total time spent on today's encounter was 65 minutes which included time spent in counseling the patient/family regarding diagnosis and treatment plan as listed above, goals of care, and symptom management. Case was discussed with nursing staff,
specialists, and care coordinators/case management. All labs and imaging personally reviewed by me. Remainder the time spent in detailed review of previous records, lab data, imaging, and other medical provider documentation.
Anticipated Discharge: Today
Subjective/Interval History
-
Date of Service: June 01, 2024
Patient seen and examined at bedside, denies any chest pain or shortness of breath, no abdominal pain, no nausea, no vomiting, no diarrhea or constipation.
Pending placement to rehab.
Objective Data
-
Vital Signs:
Vital Signs
Temp Pulse Resp BP Pulse Ox
98 F 63 14 116/54 95
06/01/24 07:16 06/01/24 07:16 06/01/24 07:16 06/01/24 07:16 06/01/24 08:29
I&O
05/31/24 06/01/24 06/02/24
06:59 06:59 06:59
Intake Total 720 / 720 600 / 600
Balance 720 / 720 600 / 600
Physical Exam
-
General: Well Developed, Well Nourished, No Apparent Distress and Comfortable
HEENT: Normocephalic, Atraumatic, Moist Mucous Membranes, No Ptosis, PERRLA and Nose Appears Normal
Respiratory: Clear to Auscultation and Non Labored Respirations
Cardiac: Regular Rhythm and S1/S2
Breast: Deferred by me
GI: Soft, Nontender, Nondistended and Normal Bowel Sounds
Genito-urinary: No Costovertebral Tender
Musculoskeletal: No Clubbing, No Cyanosis and No Edema
Skin: Warm
Neuro: Awake, Alert, Oriented, AO x 3 and No Motor Deficits
Psych: Calm
Data Reviewed
-
Diagnostic Radiology: Image personally visualized and interpreted and Report Reviewed by me
CT Scan: Image personally visualized and interpreted and Report Reviewed by me
Ultrasound: Image personally visualized and interpreted and Report Reviewed by me
MRI: Image personally visualized and interpreted and Report Reviewed by me
Medical Tests (Nuc Med, Echo etc): Image personally visualized and interpreted and Report Reviewed by me
Labs: Labs Reviewed by me
Old Records: Reviewed
--- NOTE | 2024-06-01 12:50 | PN.CDI ---
CDI
- -
CDI:
Physician Documentation Request
Admit Date: 05/30/24 11:11
Dear Doctor ,
Please review the following and provide your response in the progress notes.
Clinical Indicators:
Pt admitted with CVA most likely embolic in nature with chronic cerebral microhemorrhages.
Documented throughout the record, ' Cardiomyopathy Echocardiogram shows EF 35 to 40%....Patient with Elevated troponin....'
Cardiology consult and notes, ' -Troponin elevation noted, peaking at 0.099 and trending down thereafter. Continues to deny chest pain. ...'
Please provide in your notes the diagnosis associated with the elevated troponin:
Non-ischemic myocardial injury
Insignificant abnormal lab finding
Other ( please specify)
Use of terms such as suspected, likely, concern for, or probable (associated with a specific diagnosis that is being evaluated, monitored, or treated as if it exists) are acceptable and can be coded in the inpatient setting, when documented at the
time of discharge.
Thank you,
Estrella Grady RN
CDI Specialist
[place] [facility]
Please use your independent medical judgment in providing your response.
--- NOTE | 2024-06-01 13:04 | PTCARENOTE ---
patient c/o right foot pain, improved after PRN Tylenol, tolerating diet, sitting oob for both breakfast and lunch, transferring with assist x1 with use of rolling walker, vss, will continue to monitor.
--- NOTE | 2024-06-01 16:50 | CM ---
Spoke with [facility] no beds available at only at [place] .
PAC data given to pt for SNF .
Will need to locate SNF and auth needed .
Pt requested [facility] .
PLAN To SNF will NEEED aUTH
[2024-06-01] MEDS: LIPITOR 40 MG PO (17:21)
[2024-06-01] MEDS: LOVENOX 40 MG SC (17:21)
--- NOTE | 2024-06-01 20:51 | PTCARENOTE ---
NIH assessed 0 at this time. Pt ambulatory to bathroom with assist x1 and walker, pt with lean to the right while walking and lacks control when attempting to sit on toilet falling to the right. No other neuro deficits noted at this time. Pt denies
complaints of vertigo. Pt positioned in bed per comfort. Call nicholas in reach. Will continue to monitor.
[2024-06-01] MEDS: ELAVIL 50 MG PO (21:15)
[2024-06-02] VITALS (7 sets, daily range): BP systolic 102–147; BP diastolic 52–88; PULSE 72; O2SAT 98
[2024-06-02] MEDS: NORVASC PO ×2 (08:23→08:51)
[2024-06-02] MEDS: ZESTRIL 40 MG PO (08:23)
[2024-06-02] MEDS: LOW STRENGTH ASPIRIN 81 MG PO (08:23)
[2024-06-02] MEDS: THERAGRAN 1 TABLET PO (08:23)
[2024-06-02] MEDS: PROTONIX 40 MG PO (08:23)
--- NOTE | 2024-06-02 09:32 | W.PN.HOSP.TC ---
Today's Communication/Plan
-
Medically cleared for discharge
Assessment / Plan
Assessment / Plan
IMPRESSION:
Patient is 83 years old with history of hypertension and hyperlipidemia who came with dizziness and vertigo, found to have stroke.
MRi brain shows:
Focal areas of acute to subacute infarction involving the right cerebellar hemisphere. In the medial right cerebellar hemisphere, there is a small focus of associated hemorrhage
Seen by cardiology and neurology
Echocardiogram done shows
Normal left ventricular chamber size. Mildly to moderately left ventricular
ejection fraction is 35-40%. reduced left ventricular systolic function by
visual assessment. The apex, mid to distal inferoseptal, mid to distal lateral,
mid to distal inferolateral and distal anterior cuadra are hypokinetic. Mild
left ventricular hypertrophy.
No significant valvular disease.
No cardiac source of embolus identified consider TJEAS if clinically indicated
Status post TEJAS shows no source of intracardiac thrombus.
Will be discharged to rehab on aspirin and high-dose statin.
To follow-up with neurology as outpatient.
Follow-up with cardiology as outpatient for ischemic workup.
Assessment/plan:
Acute/subacute right cerebellar hemisphere infarct
presented to the ER with dizziness.
CT head done in the ER shows no acute intracranial abnormality
MRi brain shows:
Focal areas of acute to subacute infarction involving the right cerebellar hemisphere. In the medial right cerebellar hemisphere, there is a small focus of associated hemorrhage.
Blood work unremarkable
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
Frequent neurocheck.
Hemoglobin A1c 5.5, fasting lipid panel triglyceride 153, total cholesterol 174, LDL 78, HDL 66
PT/OT consult
Neurology consult .
Social service for discharge for discharge.
CTA head and neck shows:
No hemodynamically significant stenosis of the carotid or vertebral arterial system bilaterally and no findings to suggest internal carotid artery or vertebral artery dissection bilaterally.
Mildly dominant left vertebral artery.
Tortuous basilar artery.
Cannot exclude some narrowing/stenosis of the left PICA.
Approximate 0.9 cm calcified left lobe thyroid nodule.
Echo shows:
Normal left ventricular chamber size. Mildly to moderately left ventricular
ejection fraction is 35-40%. reduced left ventricular systolic function by
visual assessment. The apex, mid to distal inferoseptal, mid to distal lateral,
mid to distal inferolateral and distal anterior cuadra are hypokinetic. Mild
left ventricular hypertrophy.
No significant valvular disease.
No cardiac source of embolus identified consider TEJAS if clinically indicated
Appreciate neurology input.
05/31
Status post TEJAS shows no source of intracardiac thrombus
06/02
Medical cleared for discharge
Cardiomyopathy
Echocardiogram shows EF 35 to 40%.
no sign of Volume overload.
Patient with Elevated troponin.
Patient denies chest pain.
Surgery input.
Patient will need eventually ischemic workup
History of hypertension
Resume home meds
History of hyperlipidemia
Continue statin
CODE STATUS: Full code
DVT prophylaxis: Lovenox
Diet: Regular diet
Total time spent on today's encounter was 65 minutes which included time spent in counseling the patient/family regarding diagnosis and treatment plan as listed above, goals of care, and symptom management. Case was discussed with nursing staff,
specialists, and care coordinators/case management. All labs and imaging personally reviewed by me. Remainder the time spent in detailed review of previous records, lab data, imaging, and other medical provider documentation.
Anticipated Discharge: Today
Subjective/Interval History
-
Date of Service: June 02, 2024
Patient seen and examined at bedside, denies any chest pain or shortness of breath, no abdominal pain, no nausea, no vomiting, no diarrhea or constipation.
Objective Data
-
Vital Signs:
Vital Signs
Temp Pulse Resp BP Pulse Ox
98.0 F 67 17 146/88 98
06/02/24 07:05 06/02/24 08:23 06/02/24 07:05 06/02/24 08:23 06/02/24 07:05
I&O
06/01/24 06/02/24 06/03/24
06:59 06:59 06:59
Intake Total 600 / 600 960 / 960
Balance 600 / 600 960 / 960
Physical Exam
-
General: Well Developed, Well Nourished, No Apparent Distress and Comfortable
HEENT: Normocephalic, Atraumatic, Moist Mucous Membranes, No Ptosis, PERRLA and Nose Appears Normal
Respiratory: Clear to Auscultation and Non Labored Respirations
Cardiac: Regular Rhythm and S1/S2
Breast: Deferred by me
GI: Soft, Nontender, Nondistended and Normal Bowel Sounds
Genito-urinary: No Costovertebral Tender
Musculoskeletal: No Clubbing, No Cyanosis and No Edema
Skin: Warm
Neuro: Awake, Alert, Oriented, AO x 3 and No Motor Deficits
Psych: Calm
Data Reviewed
-
Diagnostic Radiology: Image personally visualized and interpreted and Report Reviewed by me
CT Scan: Image personally visualized and interpreted and Report Reviewed by me
Ultrasound: Image personally visualized and interpreted and Report Reviewed by me
MRI: Image personally visualized and interpreted and Report Reviewed by me
Medical Tests (Nuc Med, Echo etc): Image personally visualized and interpreted and Report Reviewed by me
Labs: Labs Reviewed by me
Old Records: Reviewed
--- NOTE | 2024-06-02 10:31 | CM ---
Addendum entered by Carla Miranda RN 06/02/24 16:43:
4:23pm Received call from Gabriela Cueva [phone] she said that [facility] [employer] denied acute rehab but would approve SNF.
Peer to peer information [phone] option 2 call by 12 noon tomorrow given to UR DR Sheridan via TT. RN and patient all notified.
Addendum entered by Carla Miranda RN 06/02/24 14:57:
IMM given reviewed Pt signed IMM on chart,
Awaiting determination .
Original Note:
Spoke with pt this am . Pt requested to go to [facility] in [place].
Spoke with Leigha Kaye ref [phone] she said bed available at [place] . Pt needs auth.
Called [facility] [phone] option 3 transferred from [facility] to [facility] then spoke with Saige Dalal that processed acute rehab .
Clinical given . Clinical fax to [phone] Pending ref number [id number] .
Awaiting auth approval .
Pt may need [facility] transportation .
PLAN To [facility] address: [address] [place] [address] Rd , [place] [address] after auth
[2024-06-02] MEDS: LIPITOR 40 MG PO (17:10)
[2024-06-02] MEDS: LOVENOX 40 MG SC (17:11)
[2024-06-02] MEDS: NORVASC 2.5 MG PO (20:51)
[2024-06-02] MEDS: ELAVIL 50 MG PO (20:56)
[2024-06-03 03:16] VITALS: BP 115/52
[2024-06-03 07:05] VITALS: BP 114/55
[2024-06-03] MEDS: ZESTRIL 40 MG PO (08:48)
[2024-06-03] MEDS: LOW STRENGTH ASPIRIN 81 MG PO (08:49)
[2024-06-03] MEDS: THERAGRAN 1 TABLET PO (08:49)
[2024-06-03] MEDS: PROTONIX 40 MG PO (08:49)
[2024-06-03 11:05] VITALS: BP 131/61
--- NOTE | 2024-06-03 11:11 | W.PN.HOSP.TC ---
Today's Communication/Plan
-
Stable for discharge
Assessment / Plan
Assessment / Plan
IMPRESSION:
Patient is 83 years old with history of hypertension and hyperlipidemia who came with dizziness and vertigo, found to have stroke.
MRi brain shows:
Focal areas of acute to subacute infarction involving the right cerebellar hemisphere. In the medial right cerebellar hemisphere, there is a small focus of associated hemorrhage
Seen by cardiology and neurology
Echocardiogram done shows
Normal left ventricular chamber size. Mildly to moderately left ventricular
ejection fraction is 35-40%. reduced left ventricular systolic function by
visual assessment. The apex, mid to distal inferoseptal, mid to distal lateral,
mid to distal inferolateral and distal anterior cuadra are hypokinetic. Mild
left ventricular hypertrophy.
No significant valvular disease.
No cardiac source of embolus identified consider TEJAS if clinically indicated
Status post TEJAS shows no source of intracardiac thrombus.
Will be discharged to rehab on aspirin and high-dose statin.
To follow-up with neurology as outpatient.
Follow-up with cardiology as outpatient for ischemic workup.
Assessment/plan:
Acute/subacute right cerebellar hemisphere infarct
presented to the ER with dizziness.
CT head done in the ER shows no acute intracranial abnormality
MRi brain shows:
Focal areas of acute to subacute infarction involving the right cerebellar hemisphere. In the medial right cerebellar hemisphere, there is a small focus of associated hemorrhage.
Blood work unremarkable
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
Frequent neurocheck.
Hemoglobin A1c 5.5, fasting lipid panel triglyceride 153, total cholesterol 174, LDL 78, HDL 66
PT/OT consult
Neurology consult .
Social service for discharge for discharge.
CTA head and neck shows:
No hemodynamically significant stenosis of the carotid or vertebral arterial system bilaterally and no findings to suggest internal carotid artery or vertebral artery dissection bilaterally.
Mildly dominant left vertebral artery.
Tortuous basilar artery.
Cannot exclude some narrowing/stenosis of the left PICA.
Approximate 0.9 cm calcified left lobe thyroid nodule.
Echo shows:
Normal left ventricular chamber size. Mildly to moderately left ventricular
ejection fraction is 35-40%. reduced left ventricular systolic function by
visual assessment. The apex, mid to distal inferoseptal, mid to distal lateral,
mid to distal inferolateral and distal anterior cuadra are hypokinetic. Mild
left ventricular hypertrophy.
No significant valvular disease.
No cardiac source of embolus identified consider TEJAS if clinically indicated
Appreciate neurology input.
05/31
Status post TEJAS shows no source of intracardiac thrombus
06/02
Medical cleared for discharge
Cardiomyopathy
Echocardiogram shows EF 35 to 40%.
no sign of Volume overload.
Patient with Elevated troponin.
Patient denies chest pain.
Surgery input.
Patient will need eventually ischemic workup
History of hypertension
Resume home meds
History of hyperlipidemia
Continue statin
CODE STATUS: Full code
DVT prophylaxis: Lovenox
Diet: Regular diet
Total time spent on today's encounter was 65 minutes which included time spent in counseling the patient/family regarding diagnosis and treatment plan as listed above, goals of care, and symptom management. Case was discussed with nursing staff,
specialists, and care coordinators/case management. All labs and imaging personally reviewed by me. Remainder the time spent in detailed review of previous records, lab data, imaging, and other medical provider documentation.
Anticipated Discharge: Today
Subjective/Interval History
-
Date of Service: June 03, 2024
Patient seen and examined at bedside, denies any chest pain or shortness of breath, no abdominal pain, no nausea, no vomiting, no diarrhea or constipation.
Objective Data
-
Vital Signs:
Vital Signs
Temp Pulse Resp BP Pulse Ox
97.6 F 62 17 114/55 95
06/03/24 07:05 06/03/24 07:05 06/03/24 07:05 06/03/24 07:05 06/03/24 07:05
I&O
06/02/24 06/03/24 06/04/24
06:59 06:59 06:59
Intake Total 960 / 960 1560 / 1560
Balance 960 / 960 1560 / 1560
Physical Exam
-
General: Well Developed, Well Nourished, No Apparent Distress and Comfortable
HEENT: Normocephalic, Atraumatic, Moist Mucous Membranes, No Ptosis, PERRLA and Nose Appears Normal
Respiratory: Clear to Auscultation and Non Labored Respirations
Cardiac: Regular Rhythm and S1/S2
Breast: Deferred by me
GI: Soft, Nontender, Nondistended and Normal Bowel Sounds
Genito-urinary: No Costovertebral Tender
Musculoskeletal: No Clubbing, No Cyanosis and No Edema
Skin: Warm
Neuro: Awake, Alert, Oriented, AO x 3 and No Motor Deficits
Psych: Calm
Data Reviewed
-
Diagnostic Radiology: Image personally visualized and interpreted and Report Reviewed by me
CT Scan: Image personally visualized and interpreted and Report Reviewed by me
Ultrasound: Image personally visualized and interpreted and Report Reviewed by me
MRI: Image personally visualized and interpreted and Report Reviewed by me
Medical Tests (Nuc Med, Echo etc): Image personally visualized and interpreted and Report Reviewed by me
Labs: Labs Reviewed by me
Old Records: Reviewed
[2024-06-03 11:33] VITALS: BP 131/61; PULSE 74; O2SAT 94
--- NOTE | 2024-06-03 12:59 | CM ---
Addendum entered by Carla Miranda RN 06/03/24 13:46:
[facility]
report [phone]
[phone]
WC van set up Pt given number to pay for [facility] van [phone]
Original Note:
Dr Fatimah LAZO got denial overturned for pt via [employer] peer process. Pt approved for [facility].
Informed Kalli Kaye rep Auth number [id number] from 06/03/24 to 06/09/24 NRD 06/10/24 call [phone].
Hammad Ochoa [phone] for any questions.
Pt notified she is happy . Pt working on looking for a ride to [facility] . Offered WC van to patient. Notified there is a cost.
MD notified of need for discharge.
Awaiting report and fax numbers.
PLAN To [facility] [address] [facility] [place] [address] .
--- NOTE | 2024-06-03 13:19 | W.DCSUMMARY ---
Discharge Summary
Discharge Data
Date of Admission: 05/30/24
Date of Discharge: 06/03/24
-
Pending Results: No
Hospital Course
IMPRESSION:
Patient is 83 years old with history of hypertension and hyperlipidemia who came with dizziness and vertigo, found to have stroke.
MRi brain shows:
Focal areas of acute to subacute infarction involving the right cerebellar hemisphere. In the medial right cerebellar hemisphere, there is a small focus of associated hemorrhage
Seen by cardiology and neurology
Echocardiogram done shows
Normal left ventricular chamber size. Mildly to moderately left ventricular
ejection fraction is 35-40%. reduced left ventricular systolic function by
visual assessment. The apex, mid to distal inferoseptal, mid to distal lateral,
mid to distal inferolateral and distal anterior cuadra are hypokinetic. Mild
left ventricular hypertrophy.
No significant valvular disease.
No cardiac source of embolus identified consider TEJAS if clinically indicated
Status post TEJAS shows no source of intracardiac thrombus.
Will be discharged to rehab on aspirin and high-dose statin.
To follow-up with neurology as outpatient.
Follow-up with cardiology as outpatient for ischemic workup.
Assessment/plan:
Acute/subacute right cerebellar hemisphere infarct
presented to the ER with dizziness.
CT head done in the ER shows no acute intracranial abnormality
MRi brain shows:
Focal areas of acute to subacute infarction involving the right cerebellar hemisphere. In the medial right cerebellar hemisphere, there is a small focus of associated hemorrhage.
Blood work unremarkable
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
Frequent neurocheck.
Hemoglobin A1c 5.5, fasting lipid panel triglyceride 153, total cholesterol 174, LDL 78, HDL 66
PT/OT consult
Neurology consult .
Social service for discharge for discharge.
CTA head and neck shows:
No hemodynamically significant stenosis of the carotid or vertebral arterial system bilaterally and no findings to suggest internal carotid artery or vertebral artery dissection bilaterally.
Mildly dominant left vertebral artery.
Tortuous basilar artery.
Cannot exclude some narrowing/stenosis of the left PICA.
Approximate 0.9 cm calcified left lobe thyroid nodule.
Echo shows:
Normal left ventricular chamber size. Mildly to moderately left ventricular
ejection fraction is 35-40%. reduced left ventricular systolic function by
visual assessment. The apex, mid to distal inferoseptal, mid to distal lateral,
mid to distal inferolateral and distal anterior cuadra are hypokinetic. Mild
left ventricular hypertrophy.
No significant valvular disease.
No cardiac source of embolus identified consider TEJAS if clinically indicated
Appreciate neurology input.
05/31
Status post TEJAS shows no source of intracardiac thrombus
06/02
Medical cleared for discharge
Cardiomyopathy
Echocardiogram shows EF 35 to 40%.
no sign of Volume overload.
Patient with Elevated troponin.
Patient denies chest pain.
Surgery input.
Patient will need eventually ischemic workup
History of hypertension
Resume home meds
History of hyperlipidemia
Continue statin
CODE STATUS: Full code
DVT prophylaxis: Lovenox
Diet: Regular diet
Total time spent on today's encounter was 40 minutes which included time spent in counseling the patient/family regarding diagnosis and treatment plan as listed above, goals of care, and symptom management. Case was discussed with nursing staff,
specialists, and care coordinators/case management. All labs and imaging personally reviewed by me. Remainder the time spent in detailed review of previous records, lab data, imaging, and other medical provider documentation.
Anticipated Discharge: Today
Discharge Plan
-
Patient Disposition: Acute Rehab Facility
Discharge Diagnosis/Procedures: Acute CVA
Condition: Good
Diet: Low Cholesterol
Activity: As tolerated
Other Services: PT and OT
Referrals:
Juliette Hurtado PA-C [Specified Professional Personl] - 07/05/24 2:00 pm (You have a cardiology follow up appointment at the [place] office. Please call with questions. )
Reyna Barreto MD [Active] - in two to three weeks
Jesika Howard DO [Family Provider] -
Prescriptions:
New
meclizine 25 mg Tablet
25 mg PO Q6HPRN PRN (Reason: Dizzeness) Qty: 0 0RF
aspirin 81 mg Tablet,Chewable
81 mg PO DAILY Qty: 0 0RF
atorvastatin 40 mg Tablet
40 mg PO QPM Qty: 0 0RF
Continued
amitriptyline 50 MG tablet
50 mg PO HS
lisinopril 40 MG tablet
40 mg PO DAILY
amlodipine 2.5 MG tablet
2.5 mg PO HS
therapeutic multivitamin Tablet
1 tab PO DAILY
acetaminophen [Tylenol Extra Strength] 500 mg Tablet
500 mg PO TID
omeprazole 20 mg Tablet,Delayed Release (Dr/Ec)
20 mg PO DAILY
Discontinued
simvastatin 20 MG tablet
20 mg PO QPM
Discharge Orders:
Discharge Patient (As Directed); Ordered 06/01/24
Ordered By: Kelly Hernandez
Discharge Date and Time
Print Language: AZERI
[2024-06-03] MEDS: DULCOLAX 10 MG RECTAL (14:11)
[2024-06-03] MEDS: SENOKOT-S 1 TABLET PO (14:11)
[2024-06-03 15:05] VITALS: BP 109/86
== END 2024-06-03 16:36 | DRG 64 ==
LOC: 3 WEST ACU 11:11
PROVIDERS: Internal Medicine Cardiovascular Disease; Registered Nurse; ADMITTING PHYSICIAN General Practice; CONSULT PHYSICIAN Nuclear Medicine Nuclear Cardiology; CONSULT PHYSICIAN Physical Medicine & Rehabilitation; CONSULT PHYSICIAN Psychiatry & Neurology Neurology; EMERGENCY PHYSICIAN Emergency Medicine; FAMILY PHYSICIAN Family Medicine
PROC: B24BZZ4 Ultrasonography of Heart with Aorta, Transesophageal (ICD-10-PCS; 2024-05-31)
DX: I63.541 Cerebral infarction due to unspecified occlusion or stenosis of right cerebellar artery (principal); I61.8 Other nontraumatic intracerebral hemorrhage; I42.9 Cardiomyopathy, unspecified; I5A Non-ischemic myocardial injury (non-traumatic); Q21.12 Patent foramen ovale; I47.19 Other supraventricular tachycardia; R42 Dizziness and giddiness; G89.29 Other chronic pain; M54.17 Radiculopathy, lumbosacral region; E78.00 Pure hypercholesterolemia, unspecified; I50.9 Heart failure, unspecified; I11.0 Hypertensive heart disease with heart failure; R51.9 Headache, unspecified; K21.9 Gastro-esophageal reflux disease without esophagitis; E04.1 Nontoxic single thyroid nodule; I49.3 Ventricular premature depolarization; G62.9 Polyneuropathy, unspecified; H40.9 Unspecified glaucoma; R26.2 Difficulty in walking, not elsewhere classified; I44.0 Atrioventricular block, first degree; Z60.2 Problems related to living alone; Z88.8 Allergy status to other drugs, medicaments and biological substances; Z82.0 Family history of epilepsy and other diseases of the nervous system; Z85.828 Personal history of other malignant neoplasm of skin; Z91.81 History of falling
CPT/HCPCS: 70450; 70496; 70498; 70551; 80048; 80053; 80061; 81003; 81015; 83036; 84484; 85025; 85027; 85610; 87070; 87086; 92523; 92610; 93005; 93306; 93312; 93320; 93325; 93970; 96374; 97116; 97163; 97167; 97530; 97535; 99285; Q9967

== ENCOUNTER → 2024-06-23 12:28 | Outpatient (REF) | payer OTHER, SELFPAY | LOC: EMG 12:28 | PROVIDERS: ATTENDING PHYSICIAN Physician Assistant; FAMILY PHYSICIAN Family Medicine | DX: M25.561 Pain in right knee (principal); M25.562 Pain in left knee; R20.0 Anesthesia of skin | CPT/HCPCS: 95886; 95911 ==

== ENCOUNTER 2024-07-27 11:55 | Day surgery (SDC) | payer OTHER, SELFPAY ==
--- NOTE | 2024-07-27 16:27 | ITS.CL.IMPLP ---
Glass Finisher - Implant Loop
Implant Loop
Procedure Report:
Date of Procedure: 07/27/24
Primary Care Provider: Dr Jesika Howard
Primary rod cup filler: Dr Reece Bolden
Procedure: Insertable Loop Recorder Implantation
Indication:
Cryptogenic CVA
Procedure:
The patient was brought to the procedure area in a fasting state. The anterior chest was prepped and draped in standard sterile fashion. The fourth intercostal space along the left sternal border was identified and this area was anesthetized with 10
mL of 1% lidocaine. After gathering the skin in this area, a small punch incision was made at approx intercostal space 4-5 at left costo-sternal junction using the provided scalpel/punch tool. The loop recorder was loaded into the tunneling device.
A tunnel was created in the subcutaneous tissue at a 45� angle along the coronal plane away from the sternum and towards the left flank. The tunneling device was inverted and the plunger was depressed, inserting the loop recorder into the
subcutaneous space. The tunneling device was removed. Manual pressure provide hemostasis. Adequate signal was confirmed. The skin was closed with steri-strips. The estimated blood loss was < 1 cc. A clean dressing was placed over the wound.
There were no complications.
Implant:
[employer] Reveal LINQ II
Conclusion: Uncomplicated implantation of loop recorder.
Recommendation: Routine ILR care.
Copy:
Dr Jesika Howard
Dr Reece Bolden
== END 2024-07-27 13:42 | disposition home or self-care (01) ==
LOC: CATH 11:55
PROVIDERS: ATTENDING PHYSICIAN Internal Medicine Cardiovascular Disease; FAMILY PHYSICIAN Family Medicine; OTHER PHYSICIAN Nuclear Medicine Nuclear Cardiology
DX: Z09 Encounter for follow-up examination after completed treatment for conditions other than malignant neoplasm (principal); Z86.73 Personal history of transient ischemic attack (TIA), and cerebral infarction without residual deficits; I10 Essential (primary) hypertension; E78.5 Hyperlipidemia, unspecified; Q21.12 Patent foramen ovale; Z79.82 Long term (current) use of aspirin; Z79.899 Other long term (current) drug therapy
CPT/HCPCS: 33285; C1764

== ENCOUNTER → 2024-08-24 07:48 | Outpatient (REF) | payer OTHER, SELFPAY | LOC: RCS 07:48 | PROVIDERS: ATTENDING PHYSICIAN Physician Assistant Medical; FAMILY PHYSICIAN Family Medicine | DX: I42.8 Other cardiomyopathies (principal) | CPT/HCPCS: 78452; 93017; A9500; J2785 ==

== ENCOUNTER → 2024-10-26 11:42 | Outpatient (REF) | payer OTHER, SELFPAY ==
[2024-10-26 16:22] LABS: ALT (SGPT) 15 U/L (0-35); AST (SGOT) 21 U/L (14-36); Albumin 4.4 g/dl (3.5-5.0); Alkaline Phosphatase 79 U/L (38-126); Blood Urea Nitrogen 22 mg/dl (7-17); Calcium 10.1 mg/dl (8.4-10.2); Carbon Dioxide 29 mmol/L (22-30); Chloride 104 mmol/L (98-107); Glucose 101 mg/dl (70-99); HDL Cholesterol 78 mg/dl; LDL Cholesterol, Calculated 91 mg/dl; Potassium 4.6 mmol/L (3.5-5.1); Sodium 139 mmol/L (135-145); Total Protein 6.6 g/dl (6.3-8.2); Very Low Density Lipoprotein 19 mg/dl (0-30); eGFR > 60.00
== END ==
LOC: HWRCS 11:42
PROVIDERS: ATTENDING PHYSICIAN Nuclear Medicine Nuclear Cardiology; FAMILY PHYSICIAN Family Medicine
DX: I63.9 Cerebral infarction, unspecified (principal); I10 Essential (primary) hypertension; I42.9 Cardiomyopathy, unspecified; E78.5 Hyperlipidemia, unspecified
CPT/HCPCS: 36415; 80053; 80061; 93306

== ENCOUNTER → 2025-02-01 11:05 | Outpatient (REF) | payer OTHER, SELFPAY ==
[2025-02-01 12:11] LABS: ALT (SGPT) 23 U/L (0-35); AST (SGOT) 25 U/L (14-36); HDL Cholesterol 70 mg/dl; LDL Cholesterol, Calculated 60 mg/dl; Very Low Density Lipoprotein 12 mg/dl (0-30)
== END ==
LOC: REG 11:05
PROVIDERS: ATTENDING PHYSICIAN Nuclear Medicine Nuclear Cardiology
DX: E78.5 Hyperlipidemia, unspecified (principal)
CPT/HCPCS: 36415; 80061; 84450; 84460

== ENCOUNTER 2025-02-02 02:49 | Inpatient (IN) | payer OTHER, SELFPAY ==
[2025-02-01 22:09] VITALS: BP 166/93
[2025-02-01 22:13] VITALS: BMI 23.2
[2025-02-01 22:28] LABS: Hematocrit 40.0 % (37.0-47.0); Hemoglobin 13.8 g/dL (12.0-16.0); Mean Corp Hgb Conc. 34.5 g/dL (33.0-37.0); Mean Corpuscular Volume 91.5 fL (81.0-99.0); Nucleated Red Blood Cells % 0 %; Platelet Count 227 10^3/uL (130-400); Red Cell Dist. Width 13.7 % (11.5-14.5)
[2025-02-01 23:00] VITALS: BP 128/56
[2025-02-01 23:05] LABS: ALT (SGPT) 25 U/L (0-35); AST (SGOT) 32 U/L (14-36); Albumin 4.0 g/dl (3.5-5.0); Alkaline Phosphatase 72 U/L (38-126); Blood Urea Nitrogen 19 mg/dl (7-17); Calcium 9.6 mg/dl (8.4-10.2); Carbon Dioxide 27 mmol/L (22-30); Chloride 102 mmol/L (98-107); Estimated Creatinine Clearance 52 ml/min; Glucose 126 mg/dl (70-99); Potassium 3.9 mmol/L (3.5-5.1); Sodium 135 mmol/L (135-145); Total Protein 6.2 g/dl (6.3-8.2); eGFR > 60.00
[2025-02-01 23:36] VITALS: BP 123/69
[2025-02-01] MEDS: MORPHINE SULFATE 2 MG IV (23:50)
[2025-02-02] VITALS (20 sets, daily range): BP systolic 99–148; BP diastolic 53–97; BMI 25.6
--- NOTE | 2025-02-02 01:37 | ED.GENMED ---
History of Present Illness
<Alejandra Yuan PA-C - Last Filed: 02/02/25 07:28>
General
Chief Complaint: Fall
Source: patient
Exam Limitations: none
Time Seen by Provider: 02/02/25 01:14
Nursing documentation reviewed up to this point in time: agreed with
History of Present Illness
History of Present Illness:
Note:
CHIEF COMPLAINT(S)
Right hip pain following a fall.
HISTORY OF PRESENT ILLNESS
The patient is an 84-year-old female with past medical history of prior stroke on aspirin, hyperlipidemia, CHF, hypertension, GERD, presents today from [facility] with a recent fall resulting in right hip pain. She adamantly denies hitting her
head or injuring her neck. The patient reported tripping over the carpet and falling directly onto her right side. She confirms that she did not hit her head during the fall and denies any subsequent headache or loss of consciousness. Initially,
she experienced shoulder pain, which has since resolved, leaving only significant right hip pain. She attempted to get up on her own but was unable to do so and had to push herself back to the bed. The patient denies any chest or abdominal pain and
notes no bruising to her abdomen or rib pain. She mentions that although she does not typically require oxygen, her pulse drops sometimes, especially after receiving morphine for pain relief. The patient is familiar with the possibility of needing
surgical intervention as she has been told the hip is likely fractured. She follows up with her orthopedist regularly but has never undergone joint replacement surgery. The patient denies taking any blood thinners.
PAST MEDICAL AND SURGICAL HISTORY
- No noted past joint replacement surgeries.
PHYSICAL EXAM
Nursing notes reviewed and vital signs reviewed.
General: Patient is well appearing and in no acute distress; non-toxic
Skin: Warm and dry, no rashes or lesions
Head: Normocephalic, atraumatic
Eyes: Sclera non-icteric. EOMs intact.
Cardiac: Regular rate and rhythm, no murmurs, no tenderness palpation of the external chest wall
Peripheral Vascular: No lower extremity swelling or edema, 2+ DP and PT pulses bilaterally
Pulm: Normal respiratory effort, no wheezes, rales, rhonchi
Abdomen: No abdominal tenderness to palpation
Musculoskeletal: Pain with any movement of the right hip. No pain with flexion extension of the right knee.
Neuro: CN II-XII intact, no focal neurologic deficits. Sensation intact to lower extremities bilaterally.
Psychiatric: Appropriate mood and affect.
PLAN
- Provide pain management with morphine.
- Consult orthopedic surgery for the management of the probable hip fracture, considering hip replacement surgery.
DIFFERENTIAL DIAGNOSIS
The Differential Diagnosis includes, in no particular order and is not limited to:
- Right hip fracture
- Hip contusion
- Muscle strain
- Ligamentous injury
- Femoral head injury
- Pubic ramus fracture
- Sacral fracture
- Acetabular fracture
- Pelvic fracture
- Osteoporotic fracture
SUMMARY OF ENCOUNTER
The patient presented to the emergency department with right hip pain after a fall. The clinical evaluation and x-ray suggested a likely hip fracture, which correlates with the patients inability to ambulate and significant hip pain localized to the
right side. Pain management with morphine was initiated, while consultation with orthopedic surgery was advised for further evaluation and potential operative intervention. Based on her symptoms and previous discussions with her orthopedist, it is
anticipated she may require surgical intervention, likely a hip replacement.
ED attending aware. Patient require admission to the hospital. Spoke with Dr. Liao from Ortho, will keep patient n.p.o., will potentially fix operatively later today.
DISPOSITION
Consults with orthopedic surgery for evaluation. Awaiting further management decisions from the surgical team.
ASSESSMENT
Probable right hip fracture following a fall, likely requiring orthopedic surgical intervention.
EMERGENCY TREATMENTS ADMINISTERED
Intravenous morphine for pain management.
MEDICAL DECISION MAKING
- Number and Complexity of Problems Addressed: Chronic conditions affecting care include concerns regarding hip fracture and potential surgical intervention.
- Data:
Category 1
- None mentioned.
Category 2
- Clinical input from the patient about the fall and historical use of morphine in relation to oxygen saturation.
Category 3
- Discussion with orthopedic surgery regarding potential need for surgical intervention due to probable hip fracture.
- Risk:
Prescription drug management for pain (morphine).
Decisions regarding potential surgical intervention for presumed hip fracture.
X-ray reveals right femoral neck fracture.
Shoulder x-ray without acute disease.
Past History
<Alejandra Yuan PA-C - Last Filed: 02/02/25 07:28>
Past History
ED Past Medical History: HTN and Hypercholesterolemia
ED Past Surgical History: Orthopedic (L ankle and R knee surg.)
Social History
Tobacco: Non-smoker
Alcohol: None
Personal: Single
Living: alone
Phy Exam
<Alejandra Yuan PA-C - Last Filed: 02/02/25 07:28>
Physical Exam
Physical Exam:
see hpi
Course
<Alejandra Yuan PA-C - Last Filed: 02/02/25 07:28>
Orders/Labs/Results
Orders:
Orders
02/01/25 22:20
CBC/With Diff [Complete Blood Count/With Diff] Urgent
Comprehensive Metabolic Panel Urgent
02/01/25 23:00
Shoulder, Right, Trauma [CR Shoulder, Trauma - Right] Urgent
Comment:
Reason For Exam: fall
02/01/25 23:02
CR Hip - RT w/wo Pel 2-3 Vw* Urgent
Comment:
Reason For Exam: fall
Include a pelvis x-ray?: Yes
02/01/25 23:48
Morphine Sulfate 2 mg .ROUTE .STK-MED ONE
02/01/25 23:49
Morphine Sulfate 2 mg IV NOW STA
02/02/25 01:31
0.9% Sodium Chloride 500 ml [Nss] 500 ml IV BOLUS
Morphine Sulfate 2 mg IV NOW STA
02/02/25 02:27
EKG [Electrocardiogram (*1)] Urgent
Reason for Study: PreOp
02/02/25 02:43
Admit/Transfer Patient As Directed
Co-Sign Provider:
Level of Care: Inpatient admission
Assign to:: Telemetry
Physician / Group: Luther
Diagnosis: R Hip Fracture
Reason for Telemetry: Arrhythmia
Date to Stop Telemetry: 02/05/25
Time to Stop Telemetry: 11:00
Reason for Hospitalization: R Hip Fracture
Expected length of stay greater than two midnights?: Yes
ELOS- Estimated Length of Stay in days: 3
I certify the patient meets the requirements for IP care: Yes
PRN Pain Medication Management As Directed
May give lesser potent ordered pain med per pt: Yes
preference::
Protocol:: Medication orders for pain may be administered in a
manner that supports deferring to patient preference
when the pt is:
- Requesting an ordered lesser potent pain medication.
Least to most potent pain medications are defined
as: acetaminophen < NSAID < tramadol < opioids
(morphine, oxycodone, hydromorphone).
- Requesting a lesser dose of the same medication IF
ORDERED.
- Requesting a less intrusive route of administration
if both routes are prescribed by the provider (PO <
IV).
02/02/25 02:44
Code Status As Directed
Resuscitation Status: Full Code
02/02/25 04:09
ORTHOPEDIC CONSULT Routine
Consulting Provider: Sridhar Liao
Was physician already notified: Yes
Reason for consult: R Hip Fracture
Activity As Directed
Activity Level: Bedrest
Bladder Scan As Directed
Follow Bladder Retention/Intermittent Cath Algorithm?: Yes
PRN if no void in __ hours: 6
Frequency: Per Retention Algorithm
If Bladder Scan Result >: 400
then:: Straight cath
I/O [Intake/ Output] As Directed
Frequency: Per unit guidelines
Pneumatic Compression Sleeves As Directed
Type: Knee high
Straight Cath As Directed
Frequency: Per Retention Algorithm
Additional Instructions: straight cath as needed per acute urinary retention algorithm for 24 hrs
Additional Instructions: for bladder scan greater than 400 mL
Vital Signs As Directed
Frequency: Per unit guidelines
Oxygen Therapy [O2 Therapy] [RESP] Routine
Titrate/Wean O2 to maintain O2 sat greater than (%): 94
DX Deep Vein Thrombosis Video Routine
02/02/25 Breakfast
NPO
Allow oral meds: Yes
Allow clear liquids: Sips of Clears
Basic Metabolic Panel IN AM
Complete Blood Count/No Diff IN AM
Morphine Sulfate 2 mg IV Q4HPRN PRN
02/02/25 08:00
Acetaminophen [Tylenol] 1,000 mg PO TID
Aspirin Chewable [Low Strength Aspirin] 81 mg PO DAILY
Lisinopril [Zestril] 40 mg PO DAILY
Pantoprazole [Protonix] 20 mg PO DAILY
02/02/25 22:00
Amitriptyline [Elavil] 50 mg PO HS
Atorvastatin [Lipitor] 80 mg PO HS
02/05/25 11:00
DC Protocol for Telemetry ONCE
Abnormal Lab Results
02/01/25
22:20
MCH 31.6 H pg
(27.0-31.0)
Abs Immat Gran (auto) 0.1 H 10^3/uL
(0-0.05)
Immature Gran % 0.6 H %
(0-0.5)
Lymphocytes % 17.9 L %
(20.5-51.1)
BUN 19 H mg/dl
(7-17)
Glucose 126 H mg/dl
(70-99)
Total Protein 6.2 L g/dl
(6.3-8.2)
02/01/25 22:20
02/01/25 22:20
Vital Signs
Initial and Last Documented VS:
Initial Vital Signs
BP
166/93
02/01/25 22:09
Last Documented Vital Signs
Temp Pulse Resp BP Pulse Ox
97.7 F 80 20 148/67 99
02/02/25 04:24 02/02/25 04:24 02/02/25 04:24 02/02/25 04:24 02/02/25 04:45
<Alma Parker, DO - Last Filed: 02/02/25 01:59>
Orders/Labs/Results
Orders:
Orders
02/01/25 22:20
CBC/With Diff [Complete Blood Count/With Diff] Urgent
Comprehensive Metabolic Panel Urgent
02/01/25 23:00
Shoulder, Right, Trauma [CR Shoulder, Trauma - Right] Urgent
Comment:
Reason For Exam: fall
02/01/25 23:02
CR Hip - RT w/wo Pel 2-3 Vw* Urgent
Comment:
Reason For Exam: fall
Include a pelvis x-ray?: Yes
02/01/25 23:48
Morphine Sulfate 2 mg .ROUTE .STK-MED ONE
02/01/25 23:49
Morphine Sulfate 2 mg IV NOW STA
02/02/25 01:31
0.9% Sodium Chloride 500 ml [Nss] 500 ml IV BOLUS
Morphine Sulfate 2 mg IV NOW STA
02/02/25 02:27
EKG [Electrocardiogram (*1)] Urgent
Reason for Study: PreOp
02/02/25 02:43
Admit/Transfer Patient As Directed
Co-Sign Provider:
Level of Care: Inpatient admission
Assign to:: Telemetry
Physician / Group: Luther
Diagnosis: R Hip Fracture
Reason for Telemetry: Arrhythmia
Date to Stop Telemetry: 02/05/25
Time to Stop Telemetry: 11:00
Reason for Hospitalization: R Hip Fracture
Expected length of stay greater than two midnights?: Yes
ELOS- Estimated Length of Stay in days: 3
I certify the patient meets the requirements for IP care: Yes
PRN Pain Medication Management As Directed
May give lesser potent ordered pain med per pt: Yes
preference::
Protocol:: Medication orders for pain may be administered in a
manner that supports deferring to patient preference
when the pt is:
- Requesting an ordered lesser potent pain medication.
Least to most potent pain medications are defined
as: acetaminophen < NSAID < tramadol < opioids
(morphine, oxycodone, hydromorphone).
- Requesting a lesser dose of the same medication IF
ORDERED.
- Requesting a less intrusive route of administration
if both routes are prescribed by the provider (PO <
IV).
02/02/25 02:44
Code Status As Directed
Resuscitation Status: Full Code
02/02/25 04:09
ORTHOPEDIC CONSULT Routine
Consulting Provider: Sridhar Liao
Was physician already notified: Yes
Reason for consult: R Hip Fracture
Activity As Directed
Activity Level: Bedrest
Bladder Scan As Directed
Follow Bladder Retention/Intermittent Cath Algorithm?: Yes
PRN if no void in __ hours: 6
Frequency: Per Retention Algorithm
If Bladder Scan Result >: 400
then:: Straight cath
I/O [Intake/ Output] As Directed
Frequency: Per unit guidelines
Pneumatic Compression Sleeves As Directed
Type: Knee high
Straight Cath As Directed
Frequency: Per Retention Algorithm
Additional Instructions: straight cath as needed per acute urinary retention algorithm for 24 hrs
Additional Instructions: for bladder scan greater than 400 mL
Vital Signs As Directed
Frequency: Per unit guidelines
Oxygen Therapy [O2 Therapy] [RESP] Routine
Titrate/Wean O2 to maintain O2 sat greater than (%): 94
DX Deep Vein Thrombosis Video Routine
02/02/25 Breakfast
NPO
Allow oral meds: Yes
Allow clear liquids: Sips of Clears
Basic Metabolic Panel IN AM
Complete Blood Count/No Diff IN AM
Morphine Sulfate 2 mg IV Q4HPRN PRN
02/02/25 08:00
Acetaminophen [Tylenol] 1,000 mg PO TID
Aspirin Chewable [Low Strength Aspirin] 81 mg PO DAILY
Lisinopril [Zestril] 40 mg PO DAILY
Pantoprazole [Protonix] 20 mg PO DAILY
02/02/25 22:00
Amitriptyline [Elavil] 50 mg PO HS
Atorvastatin [Lipitor] 80 mg PO HS
02/05/25 11:00
DC Protocol for Telemetry ONCE
Abnormal Lab Results
02/01/25
22:20
MCH 31.6 H pg
(27.0-31.0)
Abs Immat Gran (auto) 0.1 H 10^3/uL
(0-0.05)
Immature Gran % 0.6 H %
(0-0.5)
Lymphocytes % 17.9 L %
(20.5-51.1)
BUN 19 H mg/dl
(7-17)
Glucose 126 H mg/dl
(70-99)
Total Protein 6.2 L g/dl
(6.3-8.2)
02/01/25 22:20
02/01/25 22:20
Vital Signs
Initial and Last Documented VS:
Initial Vital Signs
BP
166/93
02/01/25 22:09
Last Documented Vital Signs
Temp Pulse Resp BP Pulse Ox
97.7 F 80 20 148/67 99
02/02/25 04:24 02/02/25 04:24 02/02/25 04:24 02/02/25 04:24 02/02/25 04:45
<Alejandra Yuan PA-C - Last Filed: 02/02/25 07:28>
*Pulse Oximetry
SaO2: 99
Oxygen Mode of Delivery: Room air
Patient hypoxic: no
*Critical Care Note
Total Time (30-74mins, 75-104mins- exclusive of procedures): Not Applicable
ED Attending Note
<Alejandra Yuan PA-C - Last Filed: 02/02/25 07:28>
-
Portions of this chart may have been created with voice recognition software.� Occasional wrong word or��sound alike� substitutions may have occurred due to the inherent limitations of voice recognition software.
<Alma Parker DO - Last Filed: 02/02/25 01:59>
ED Attending Note
Patient seen and examined by attending physician: Yes
I performed a history and physical exam of patient and discussed management with resident, I reviewed resident's note and agree with documented findings and plan of care.: Yes
ED Attending Note:
84-year-old woman who resides at [facility] living suffered a mechanical fall tonight landing on the carpet injuring her right hip. Complains of severe right hip pain, she also initially complained of right shoulder pain. Shoulder
pain has since resolved.
She denies head injury. Takes no anticoagulants save for low-dose aspirin. No headache, no neck nor back pain.
84-year-old woman appears her stated age, awake and alert, pleasant, appears in mild distress related to right hip pain. Easily communicative.
The head is normocephalic, atraumatic.
Neck is supple, nontender.
Right lower extremities externally rotated, flexed at the hip and knee. Marked tenderness about the right hip and markedly limited range of motion right hip related to pain. There is no tenderness about the right shoulder and full range of motion
without difficulty.
X-rays revealed right hip fracture. Shoulder x-ray is unremarkable.
Pain improved with small IV doses of morphine.
Will plan to admit to hospitalist service and consult orthopedics.
Discharge Plan
Departure
Patient Disposition: Admit
Date of Disposition: 02/02/25
Time of Disposition: 01:34
Admit to: Med/Surg
Presentation/result/management discussed w/ accepting MD/DO: Hospitalist
Patient with high blood pressure during this ER visit?: Yes
Discharge Problem:
Closed fracture of neck of right femur
Interventions
Interventions:
*Risk Screen - Suicide Last Done: 02/01/25 22:18
*General Assessment Last Done: 02/01/25 22:18
*Neglect/Abuse Screening Last Done: 02/01/25 22:18
*ED COVID-19 Vaccine History Last Done: 02/01/25 22:17
*ED Influenza Vaccine History Last Done: 02/01/25 22:17
[facility] Fall Risk Assessment Tool Last Done: 02/01/25 23:38
*Nursing Disposition Last Done: 02/02/25 04:10
ED-Musculoskeletal Assessment Last Done: 02/01/25 22:10
ED- Neurological Assessment Last Done: 02/01/25 22:10
ED-Skin Assessment Last Done: 02/01/25 22:15
Discharge Date and Time
Discharge Date/Time: 02/02/25 04:10
[2025-02-02] MEDS: MORPHINE SULFATE 2 MG IV ×3 (01:48→10:41)
[2025-02-02] MEDS: NSS 500 IV (01:50)
--- NOTE | 2025-02-02 02:45 | HPS.HSE ---
Family Physician
-
Family Physician: Jesika Howard
Chief Complaint
-
Fall / Hip Pain
History of Present Illness
Patient is an 84y F with PMH significant for hypertension and CVA who presents to ED complaining of R hip pain after fall at home. Patient states that she was in her bedroom this evening and she turned to walk to the bathroom. Her foot 'caught'
on the carpet and she fell - landing on her R side. Patient denies any head injury. She denies LOC. She denies any prodrome of lightheadedness, dizziness, chest pain or dyspnea. Patient noted immediate pain in the R hip and was unable to get up
unassisted. She activated her emergency alert system and was brought to the ED for further evaluation.
Patient states that she has been feeling well. No recent fevers / chills, cough / SOB, GI or complaints.
Medical History
Past Medical History
Past Medical History: Reports Other
Additional Past Medical History:
CVA
Hypertension
Small PFO
Past Surgical History: Reports Other
Additional Past Surgical History:
LINQ Implant
Left Ankle ORIF with Hardware
Right Bunionectomy
Social History
Tobacco: Non-smoker
Alcohol: None
Drug: None
Family History
Family History: Not pertinent
Allergies / Home Medications
Allergies reflects when Allergies were last updated in [employer].
Home Medications with original date entered in [employer]
Allergy/Medication List:
Allergies
Allergy/AdvReac Type Severity Reaction Status Date / Time
Beta-Blockers Allergy PSORIASIS Verified 02/02/25 02:05
(Beta-Adrenergic Bloc
Home Medications
amitriptyline 50 mg tablet 50 mg PO HS depression/sleep 02/25/13
lisinopril 40 mg tablet 40 mg PO DAILY Blood Pressure 02/25/13
omeprazole 20 mg tablet,delayed release 20 mg PO DAILY Gastrointestinal Issue 05/29/24
aspirin 81 mg chewable tablet 81 mg PO DAILY #0 tabs 06/01/24
atorvastatin 40 mg tablet 80 mg PO QPM 02/02/25
atorvastatin 80 mg tablet (Lipitor) 80 mg PO HS 02/02/25
cholecalciferol (vitamin D3) 50 mcg (2,000 unit) tablet (Vitamin D3) 50 mcg PO DAILY 02/02/25
Review of Systems
-
History Source: Patient
A 12 point ROS was completed and negative except as noted: Yes
Constitutional: Denies Fever or Chills
Respiratory: Denies Cough or Trouble Breathing
Cardiac: Denies Chest Pain, Palpitations or Syncope
Abdomen/GI: Denies Abdominal Pain, Nausea, Vomiting or Diarrhea
: Denies Dysuria or Frequency
Musculoskeletal: Reports Joint Pain; Denies Edema
Neurological: Denies Dizzy or Headache
Psych: Denies Depression or Anxiety
Physical Exam
Vital Signs
Vital Signs
Temp Pulse Resp BP Pulse Ox
97.8 F 72 18 125/97 99
02/01/25 22:12 02/02/25 02:04 02/02/25 02:04 02/02/25 02:04 02/02/25 02:30
Physical Exam
General: Other (84y F in no acute distress.)
HEENT: Moist mucous membranes and PERRLA
Respiratory: Clear; No Wheezes, Rales or Rhonchi
Cardiac: S1/S2, Regular Rhythm and Murmur (II/ KELY)
GI: Soft, Non Tender, Non Distended and Normal Bowel Sounds
Musculoskeletal: No Clubbing, No Cyanosis and Other (RLE externally rotated / flexed at the knee.)
Neuro: AO x 3
Laboratory Results
-
02/01/25 22:20
02/01/25 22:20
Laboratory Results
Total Bilirubin 0.7 mg/dl (0.2-1.3) 02/01/25 22:20
AST 32 U/L (14-36) 02/01/25 22:20
ALT 25 U/L (0-35) 02/01/25 22:20
Alkaline Phosphatase 72 U/L (38-126) 02/01/25 22:20
Impression/Plan
-
A/P: Patient is an 84y F with PMH significant for hypertension and prior stroke who presents to ED complaining of R hip pain s/p fall at home.
Right Hip Fracture
Fall at Home
- Admit for further evaluation and treatment.
- Seems mechanical fall in nature - monitor on tele overnight.
- Ortho consulted for operative repair of R hip.
- EKG done in the ED is unremarkable.
- Patient is at increased risk for complications on basis of prior stroke.
- Benefits of planned procedure outweigh the potential risks and patient is OK to proceed with surgery without additional pre-op evaluation(s).
- Post-op care per Ortho. PT eval, pain control, DVT prophylaxis, etc.
Prior CVA
- Stroke in April manifest as dizziness.
- Extensive evaluation included TTE, TEJAS (small PFO - not candidate for closure), LINQ implant, etc.
- Had follow-up stress test July 2024 which was normal. Normal EF at that time as well (confirmed with follow-up Echo).
- Continue ASA.
- Follow for any clinical changes.
Benign Hypertension
- Stable. Continue lisinopril with holding parameters.
DVT Prophylaxis: SCDs
Code Status: Full
--- NOTE | 2025-02-02 05:09 | PTCARENOTE ---
pt admitted to 413-1 from ED. Pulled over to bed x4. AAOx3, c/o 08/09 R hip pain. medicated with PRN morphine. VSS. Call nicholas within reach.
--- NOTE | 2025-02-02 07:59 | CON.ORTHO ---
Addendum entered and electronically signed by Alpesh Carver MD 02/02/25 19:50:
I evaluated the patient at bedside and agree with above note. 84F s/p trip and fall in her home with acute onset R hip pain. Xrays show displaced intertrochanteric fracture. I reviewed the treatment options including operative and nonoperative
treatments. Shared decision was for operative treatment with CMN.
Original Note:
Consultation
-
Date/Time Consultation Requested: February 02, 2025 at 3:00 AM
Date/Time Consultation Performed: February 02, 2025 at 7:30 AM
Requesting Provider: Eze Sloan DO
Performing Provider: Alpesh Carver MD
Reason for Consultation: Right hip pain
Consultation - Orthopedics
History
This is an 84-year-old female who has an apartment at [facility]. Yesterday she caught her foot on a carpet and fell on her right side. There was pain about the right shoulder which seems to be improving today and right hip pain. No back pain
noted and no radicular symptoms reported. Pain is localized to the right groin. She was unable to bear weight. Ambulance transported to [facility] emergency room and x-rays revealed right hip intertrochanteric fracture. Right shoulder
no fracture or dislocation but moderate glenohumeral and acromioclavicular osteoarthritis present. Prior to this fall she was not having any problems with hip pain. She does primarily ambulate with a walker and cane. She has seen Dr. Carver in
the past and has severe right knee osteoarthritis. Cortisone injection this past May has helped a lot with her pain. She also has had EMG which shows lumbar radiculopathy. She does have numbness in her bilateral feet.
Past medical history:
CVA with residual balance issues
Migraines
Hypertension
Small PFO
Past surgical history:
LINQ inplant
ORIF left ankle
Right bunionectomy
Right knee scope by Dr. Mueller
Glaucoma with bilateral stents
Social history:
Non-smoker
No alcohol
Lives at [facility]
Ambulates primarily with a walker and sometimes cane
Allergies / Home Medications
Allergy/AdvReac Type Severity Reaction Status Date / Time
Beta-Blockers Allergy PSORIASIS Verified 02/02/25 02:05
(Beta-Adrenergic Bloc
�Medication �Instructions �Recorded
amitriptyline 50 mg tablet 50 mg PO HS depression/sleep 02/25/13
lisinopril 40 mg tablet 40 mg PO DAILY Blood Pressure 02/25/13
omeprazole 20 mg tablet,delayed 20 mg PO DAILY Gastrointestinal 05/29/24
release Issue
aspirin 81 mg chewable tablet 81 mg PO DAILY #0 tabs 06/01/24
atorvastatin 40 mg tablet 80 mg PO QPM 02/02/25
atorvastatin 80 mg tablet (Lipitor) 80 mg PO HS 02/02/25
cholecalciferol (vitamin D3) 50 50 mcg PO DAILY 02/02/25
mcg (2,000 unit) tablet (Vitamin
D3)
glucosamine sulfate 500 mg tablet 500 mg PO QID 02/02/25
Vital Signs / Lab Results
Temp Pulse Resp BP Pulse Ox
97.7 F 80 20 148/67 99
02/02/25 04:24 02/02/25 04:24 02/02/25 04:24 02/02/25 04:24 02/02/25 04:45
Right shoulder no edema or ecchymosis. Minimal diffuse pain around the shoulder. Full motion and no weakness.
Right hip shortening with external rotation. Tenderness about the greater trochanteric region. [place] elicits pain in the hip. No pain about the femur or knee. Distal neurovascular intact throughout bilateral upper and lower extremities.
Assessment / Plan
Assessment :
Right hip intertrochanteric fracture and right shoulder osteoarthritis
Plan:
Patient has sustained right hip intertrochanteric fracture which is going to require open reduction internal fixation with gamma nail later today. She will remain n.p.o. and [facility] on-call to operating room. Surgery, risk and potential
complications along with postoperative course reviewed with patient. All questions were answered. X-ray right femur for surgical planning. [facility] on-call to operating room.
[2025-02-02 08:19] LABS: Hematocrit 36.8 % (37.0-47.0); Hemoglobin 12.5 g/dL (12.0-16.0); Mean Corp Hgb Conc. 34.0 g/dL (33.0-37.0); Mean Corpuscular Volume 91.8 fL (81.0-99.0); Platelet Count 193 10^3/uL (130-400); Red Cell Dist. Width 13.7 % (11.5-14.5)
[2025-02-02] MEDS: LOW STRENGTH ASPIRIN 81 MG PO (08:42)
[2025-02-02] MEDS: TYLENOL 1000 MG PO ×2 (08:42→22:02)
[2025-02-02] MEDS: PROTONIX 20 MG PO (08:42)
[2025-02-02] MEDS: FLUSH (NSS) 1 FLUSH IV (08:43)
[2025-02-02] MEDS: ZESTRIL 40 MG PO (08:43)
[2025-02-02 09:09] LABS: Blood Urea Nitrogen 17 mg/dl (7-17); Calcium 9.0 mg/dl (8.4-10.2); Carbon Dioxide 25 mmol/L (22-30); Chloride 108 mmol/L (98-107); Estimated Creatinine Clearance 60 ml/min; Glucose 91 mg/dl (70-99); Potassium 4.0 mmol/L (3.5-5.1); Sodium 135 mmol/L (135-145); eGFR > 60.00
[2025-02-02] MEDS: FLUSH (NSS) 2 FLUSH IV (10:41)
--- NOTE | 2025-02-02 12:23 | W.PN.HOSP.TC ---
Today's Communication/Plan
-
Assessment / Plan
Assessment / Plan
General: No Apparent Distress, Comfortable and Conversant
HEENT: NormoCephalic, Moist mucous membranes, Atraumatic
Respiratory: Clear and Non Labored Respirations
Cardiac: S1/S2 and Regular Rhythm; No Rub or Gallop
GI: Soft, Non Tender, Non Distended and Normal Bowel Sounds
Musculoskeletal: No Edema, right lower extremity flexed and externally rotated for comfort
Skin: Warm and dry, right thigh initialed by surgeon
: NO Sagastume
Neuro: Awake, Alert, Nonfocal/grossly intact
Psych: Calm and Intact Judgment/Insight
Ms. Silva is an 84-year-old female with a medical history of hypertension, CVA, Linq implant, and PFO who presented with right hip pain after mechanical fall at home. She was found to have a right intertrochanteric femur fracture. Her right
shoulder was also painful but imaging showed no fracture or dislocation, did show osteoarthritis. She was admitted for further evaluation and management.
Right intertrochanteric hip fracture:
- Traumatic following mechanical fall
- Planning OR today with Ortho for ORIF
- Pain control as needed
- Postoperative PT/OT
- Increased risk perioperatively considering stroke history however benefits outweigh risks considering her overall health and functional status
Cerebrovascular disease:
- Prior stroke, presumed embolic, no residual deficits
- PFO found on echo at the time of her stroke, small in size and not a candidate for closure
- Linq implant in place
- Continuing aspirin and statin
Hypertension:
- Well-controlled
- Continue lisinopril 40 mg daily
DVT prophylaxis: SCDs
CODE STATUS: Full code
Anticipated Discharge: > 48 hours
Subjective/Interval History
-
Date of Service: February 02, 2025
Patient was seen and examined at bedside this morning. Continues to have right groin pain which she says is manageable when not moving her right leg. Awaiting OR today with Ortho.
Objective Data
-
Labs:
Laboratory Results
02/02/25
07:17
WBC 7.7
Hgb 12.5
Hct 36.8 L
Plt Count 193
Sodium 135
Potassium 4.0
Chloride 108 H
Carbon Dioxide 25
BUN 17
Creatinine 0.6
Glucose 91
Calcium 9.0
Vital Signs:
Vital Signs
Temp Pulse Resp BP Pulse Ox
98.7 F 66 18 123/60 99
02/02/25 11:18 02/02/25 11:18 02/02/25 11:18 02/02/25 11:18 02/02/25 11:18
Review of Systems
-
History Source: Patient
All other systems: Reviewed and negative
Musculoskeletal: Reports Joint Pain (Right groin pain worse with movement)
Physical Exam
-
General: No Apparent Distress
--- NOTE | 2025-02-02 13:31 | CM ---
Patient seen bedside, initial assessment completed. Patient is an 84y F with PMH significant for hypertension and CVA who presents to ED complaining of R hip pain after fall at home.
Patient resides alone in a 3rd floor independent living apartment at [facility]. No steps, elevator access to apartment. Patient is independent w/ RW and cane, independent w/ ADLs and personal care. Patient no longer drives, she feels it is not
safe for her due to vertigo. Patient now utilizes [facility]. Patient has 2 shower chairs in the home. [facility] at [place] in May following admission. OP PT following [employer].
Patient stated if she has to go to SNF, she doesn't want to go to the [facility], prefers [facility].
PCP: Jesika Howard
Pharmacy: [facility]
Awaiting OR for R hip fx. PT/OT should follow for d/c recommendations
Plan: OR today
--- NOTE | 2025-02-02 16:30 | PTCARENOTE ---
patient refused to leave purse, cell phone , glasses and Ipad at bedside. Did not want placed in safe. belongings taken to OR by patient. she was insistent that doctor told her she could bring them with her. OR staff informed.
[2025-02-02] MEDS: TYLENOL PO (16:42)
--- NOTE | 2025-02-02 19:42 | OR.RPT ---
Operative Report
Operative Report
Orthopaedic Surgery Operative Note
DATE OF OPERATION: 02/02/2025
PREOPERATIVE DIAGNOSIS: Intertrochanteric Hip Fracture, Right
POSTOPERATIVE DIAGNOSIS: Same
OPERATION PERFORMED: Right intertrochanteric hip fracture open reduction and internal fixation with cephalomedullary nail
SURGEON: Alpesh Carver MD
SENIOR SYSTEMS ENGINEER: NA
ANESTHESIA: General
COMPLICATIONS: None.
ESTIMATED BLOOD LOSS: 100 mL.
DRAINS: None
SPECIMEN: None
IMPLANTS:
Hinton Gamma Cephalomeduallary nail; 10 mm
Rashaun lag screw, 90 mm.
5.0mm distal interlocking screw x1
INDICATIONS FOR PROCEDURE
84F presented to the ED after a fall at her home. Xrays showed displaced intertrochanteric hip fracture. I discussed treatment options with the patient including nonoperative and operative treatments. We reviewed the natural history of the problem,
as well as the risks, benefits, and alternatives of various treatment options. Shared decision was to proceed with surgical treatment. The patient and family understood the risks including, but were not limited to, bleeding, infection, failure to
relieve pain, more pain than preop, damage to blood vessels and nerves, need for reoperation, mechanical failure of the implants, wound healing problems, stiffness, instability, blood clot, pulmonary embolism, myocardial infarction, pneumonia,
arrhythmia, CVA, and . All questions were answered, and informed consent was obtained.
PROCEDURE IN DETAIL: The patient was identified in the preoperative holding area. The operative limb was identified as the operative site and marked with my initials. The patient was transferred to the operating room. General anesthesia was
performed. The patient was transferred to the [facility] operative table. IV antibiotics and tranexamic acid were given. All bony prominences were well padded. The operative limb was prepped and draped in the usual sterile fashion.
We performed a surgical time-out. A 1.6mm (0.65'') frederick wire was placed in the distal femur, and traction bow was applied. This was well padded over the knee. 15lbs of skeletal traction was applied. The fracture was reduced with the aid of
flouroscopy. The guide wire was placed over the medial aspect of the tip of the greater trochanter. The guide wire was advanced and checked for appropriate position on AP and lateral. The pin guide wire was advanced to the level of the lesser
trochanter. Incision was made about the wire. The opening reamer was used to open the starting point over the guide wire. The nail was then inserted over the guidewire down to the appropriate depth. The guide wire was removed. The targeting guide
was assembled, and a lateral incision was made for lag screw placement. A guide pin was advanced into the femoral head. Position was checked on AP and lateral. The length was measured to be 95mm. The drill was set to the appropriate depth, and the
lag screw path was drilled over the guide wire. The lag screw was then inserted into the femoral head just distal to the subchondral bone. The locking screw was then placed into the top of the nail. Skeletal traction was removed, and a single distal
interlocking screw was placed into the static interolocking hole with through the targeting guide. Final fluoroscopy shots were performed which showed appropriate position and length of the implant and anatomic reduction of the fracture.
The incisions were copiously irrigated with 3L normal saline. The deep fascial layers were closed with 0 PDS. The dermal layer closed with 2-0 PDS running. The skin was closed oren. The patient was awoken from anesthesia without complication. The
patient awoke from anesthesia without difficulty. Sponge and instrument counts were correct x2 at the end of the case. I was present and participated in the entire procedure. The patient was sent to the recovery room in stable condition.
Post operative plan:
WBAT
PT/OT
Pain control
Delirium prevention
ABX: Ancef x24 hours
DVT: ASA 325 daily
Bony Carver MD
[2025-02-02] MEDS: LIPITOR 80 MG PO (22:02)
[2025-02-02] MEDS: ELAVIL 50 MG PO (22:02)
[2025-02-02] MEDS: ASPIRIN 325 MG PO (22:04)
[2025-02-03] VITALS (9 sets, daily range): BP systolic 102–127; BP diastolic 50–61; PULSE 74; BMI 25.2
[2025-02-03] MEDS: ANCEF 5 IV ×2 (02:08→09:23)
[2025-02-03] MEDS: FLUSH (NSS) 2 FLUSH IV ×2 (02:10→09:24)
[2025-02-03] MEDS: ROXICODONE 5 MG PO ×2 (03:26→09:26)
--- NOTE | 2025-02-03 06:09 | W.PN.ORTHO ---
Today's Communication / Plan
-
84-year-old female POD #1 Right Hip CMN 02/02/[address] Carver.
- WBAT RLE with use of walker for assistance.
- PT/OT as tolerated.
- ASA 325 daily x 4 weeks for DVT prophylaxis.
- Pain control per primary team.
- Ice therapy for pain and edema control.
- CM regarding discharge planning.
- Orthopedic surgery will continue to follow.
Assessment
.
Distal Motor Intact: Yes
Dressing:
Clean, dry and intact.
Assessment:
POD #1 Right Hip CMN 02/02/[address] Carver.
Plan
.
Surgery / Date: R Hip CMN 02/02/2025 [facility]
DVT Prophylaxis: Aspirin
Activity:
Out of bed.
PT/OT.
Discharge Plan: Other
Discharge Information:
Appreciate CM.
Subjective
.
.:
Patient resting comfortably.
Vital Signs and Labs
.
Vital Signs and Labs:
Temp Pulse Resp BP Pulse Ox
97.5 F 72 18 104/59 93
02/03/25 03:02 02/03/25 03:02 02/03/25 03:02 02/03/25 03:02 02/03/25 03:02
--- NOTE | 2025-02-03 06:23 | PTCARENOTE ---
Patient received from PACU via bed at 21:00. She was drowsy but easily arousable. O2 at 2lpm weaned down to 1lpm. Tele NSr with 1 degree AV block. HRR. Ice to hip intermittently. Dressing remain C/D/I. RLE warm with good sensation, normal
pedal pulse with cap refill<2 sec. Patient heavy Ax2 to [facility]. She voided 300mg jeffery urine. Bladder scan this am 184. Claudia po intake. Roxicodone 5mg x 1 this shift with good pain relief.
[2025-02-03 08:24] LABS: Hematocrit 34.5 % (37.0-47.0); Hemoglobin 11.6 g/dL (12.0-16.0)
[2025-02-03 08:51] LABS: Blood Urea Nitrogen 17 mg/dl (7-17); Calcium 8.3 mg/dl (8.4-10.2); Carbon Dioxide 26 mmol/L (22-30); Chloride 105 mmol/L (98-107); Estimated Creatinine Clearance 52 ml/min; Glucose 110 mg/dl (70-99); Potassium 4.2 mmol/L (3.5-5.1); Sodium 134 mmol/L (135-145); eGFR > 60.00
[2025-02-03] MEDS: TYLENOL 1000 MG PO ×3 (09:21→21:57)
[2025-02-03] MEDS: PROTONIX 20 MG PO (09:21)
[2025-02-03] MEDS: ASPIRIN 325 MG PO (09:21)
[2025-02-03] MEDS: ZESTRIL PO (09:27)
--- NOTE | 2025-02-03 11:45 | W.PN.HOSP.TC ---
Today's Communication/Plan
-
Assessment / Plan
Assessment / Plan
General: No Apparent Distress, Comfortable and Conversant
HEENT: NormoCephalic, Moist mucous membranes, Atraumatic
Respiratory: Clear and Non Labored Respirations
Cardiac: S1/S2 and Regular Rhythm; No Rub or Gallop
GI: Soft, Non Tender, Non Distended and Normal Bowel Sounds
Musculoskeletal: No Edema, right lower extremity with postoperative dressing CDI
Skin: Warm and dry
: NO Sagastume
Neuro: Awake, Alert, Nonfocal/grossly intact
Psych: Calm and cooperative
Ms. Silva is an 84-year-old female with a medical history of hypertension, CVA, Linq implant, and PFO who presented with right hip pain after mechanical fall at home. She was found to have a right intertrochanteric femur fracture. Her right
shoulder was also painful but imaging showed no fracture or dislocation, did show osteoarthritis. She was admitted for further evaluation and management.
Right intertrochanteric hip fracture:
- Traumatic following mechanical fall
- OR yesterday 02/03 with Ortho for ORIF
- Pain control as needed
- Postoperative PT/OT
- Aspirin 325 mg daily for 4 weeks per Ortho recommendations
Cerebrovascular disease:
- Prior stroke, presumed embolic, no residual deficits
- PFO found on echo at the time of her stroke, small in size and not a candidate for closure
- Linq implant in place
- Continuing aspirin and statin
Hyponatremia:
- Mild with serum sodium 134
- Likely hypovolemic, will give normal saline 500 cc at low rate
- Will monitor
Hypertension:
- Patient actually mildly hypotensive this morning, holding home lisinopril 40 mg daily for now
- Will give gentle IV fluids, monitor
DVT prophylaxis: SCDs
CODE STATUS: Full code
Anticipated Discharge: 24 - 48 hours
Subjective/Interval History
-
Date of Service: February 03, 2025
Patient was seen and examined at bedside this morning. Feeling well after ORIF for right hip fracture yesterday.
Objective Data
-
Labs:
Laboratory Results
02/03/25
07:52
Hgb 11.6 L
Hct 34.5 L
Sodium 134 L
Potassium 4.2
Chloride 105
Carbon Dioxide 26
BUN 17
Creatinine 0.7
Glucose 110 H
Calcium 8.3 L
Vital Signs:
Vital Signs
Temp Pulse Resp BP Pulse Ox
98.1 F 74 16 109/58 96
02/03/25 11:00 02/03/25 11:00 02/03/25 11:00 02/03/25 11:00 02/03/25 11:00
I&O
02/02/25 02/03/25 02/04/25
06:59 06:59 06:59
Output Total 1200 / 1200
Balance -1200 / -1200
Review of Systems
-
History Source: Patient
All other systems: Reviewed and negative
Physical Exam
-
General: No Apparent Distress
[2025-02-03] MEDS: NSS 500 IV (12:31)
--- NOTE | 2025-02-03 13:49 | CM ---
Chart reviewed. Post op day 1 for ORIF
Therapy recommended SNF
Per patient, she prefers [facility], referral completed in [facility] for review
Will need insurance auth
Plan: SNF
[2025-02-03] MEDS: LIPITOR 80 MG PO (21:56)
[2025-02-03] MEDS: ELAVIL 50 MG PO (21:57)
[2025-02-04] VITALS (8 sets, daily range): BP systolic 109–119; BP diastolic 47–66; PULSE 76–88; O2SAT 94; BMI 25.9
[2025-02-04] MEDS: ROXICODONE 5 MG PO ×4 (02:58→22:42)
--- NOTE | 2025-02-04 08:17 | W.PN.ORTHO ---
Today's Communication / Plan
-
POD #2 Right Hip CMN 02/02/[address] Carver.
- WBAT RLE with use of walker for assistance.
- PT/OT as tolerated.
- ASA 325 daily x 4 weeks for DVT prophylaxis.
- Pain control per primary team.
- Ice therapy for pain and edema control.
- CM regarding discharge planning.
-Follow-up with orthopedics 2 weeks postop
-Pressure face orthopedic surgery will sign off
Assessment
.
Distal Motor Intact: Yes
Dressing:
Clean, dry and intact.
Plan
.
Surgery / Date: R Hip CMN 02/02/2025 [facility]
DVT Prophylaxis: Aspirin
Activity:
Out of bed.
PT/OT
Discharge Plan: SNF
Subjective
.
.:
Patient resting comfortably.
Vital Signs and Labs
.
Vital Signs and Labs:
Lab Results
02/03/25 07:52
02/03/25 07:52
Temp Pulse Resp BP Pulse Ox
97.5 F 63 12 109/50 96
02/04/25 07:00 02/04/25 07:00 02/04/25 07:00 02/04/25 07:00 02/04/25 07:00
[2025-02-04] MEDS: ASPIRIN 325 MG PO (08:47)
[2025-02-04] MEDS: PROTONIX 20 MG PO (08:47)
[2025-02-04] MEDS: TYLENOL 1000 MG PO ×3 (08:47→21:10)
[2025-02-04] MEDS: ZESTRIL PO (08:52)
--- NOTE | 2025-02-04 11:27 | W.PN.HOSP.TC ---
Today's Communication/Plan
-
Assessment / Plan
Assessment / Plan
General: No Apparent Distress, Comfortable and Conversant
HEENT: NormoCephalic, Moist mucous membranes, Atraumatic
Respiratory: Clear and Non Labored Respirations
Cardiac: S1/S2 and Regular Rhythm; No Rub or Gallop
GI: Soft, Non Tender, Non Distended and Normal Bowel Sounds
Musculoskeletal: No Edema, right lower extremity with postoperative dressing CDI
Skin: Warm and dry
: NO Sagastume
Neuro: Awake, Alert, Nonfocal/grossly intact
Psych: Calm and cooperative
Ms. Silva is an 84-year-old female with a medical history of hypertension, CVA, Linq implant, and PFO who presented with right hip pain after mechanical fall at home. She was found to have a right intertrochanteric femur fracture. Her right
shoulder was also painful but imaging showed no fracture or dislocation, did show osteoarthritis. She was admitted for further evaluation and management.
Right intertrochanteric hip fracture:
- Traumatic following mechanical fall
- OR 02/02 with Ortho for ORIF
- Pain control as needed
- Aspirin 325 mg daily for 4 weeks per Ortho recommendations
- PT recommending SNF, placement pending
Cerebrovascular disease:
- Prior stroke, presumed embolic, no residual deficits
- PFO found on echo at the time of her stroke, small in size and not a candidate for closure
- Linq implant in place
- Continuing aspirin and statin
Hyponatremia:
- Mild with serum sodium 134
- Likely hypovolemic, gave normal saline 500 cc at low rate
- Will monitor
Hypertension:
- Patient actually mildly hypotensive, holding home lisinopril 40 mg daily for now
- Gave gentle IV fluids, monitor
- Will likely restart antihypertensive regimen at lower dose
DVT prophylaxis: SCDs, full-strength aspirin
CODE STATUS: Full code
Anticipated Discharge: 24 - 48 hours
Subjective/Interval History
-
Date of Service: February 04, 2025
Patient was seen and examined at bedside this morning. No acute distress. Is experiencing some indigestion, Tums ordered.
Objective Data
-
Vital Signs:
Vital Signs
Temp Pulse Resp BP Pulse Ox
97.5 F 63 12 109/50 96
02/04/25 07:00 02/04/25 07:00 02/04/25 07:00 02/04/25 07:00 02/04/25 09:30
I&O
02/03/25 02/04/25 02/05/25
06:59 06:59 06:59
Intake Total 980 / 980 210 / 210
Output Total 1200 / 1200 375 / 375 900 / 900
Balance -1200 / -1200 605 / 605 -690 / -690
Review of Systems
-
History Source: Patient
All other systems: Reviewed and negative
Physical Exam
-
General: No Apparent Distress
[2025-02-04 12:59] LABS: Hematocrit 36.7 % (37.0-47.0); Hemoglobin 12.2 g/dL (12.0-16.0); Mean Corp Hgb Conc. 33.2 g/dL (33.0-37.0); Mean Corpuscular Volume 94.8 fL (81.0-99.0); Nucleated Red Blood Cells % 0 %; Platelet Count 196 10^3/uL (130-400); Red Cell Dist. Width 14.1 % (11.5-14.5)
[2025-02-04 13:15] LABS: Blood Urea Nitrogen 21 mg/dl (7-17); Calcium 8.9 mg/dl (8.4-10.2); Carbon Dioxide 27 mmol/L (22-30); Chloride 103 mmol/L (98-107); Estimated Creatinine Clearance 52 ml/min; Glucose 99 mg/dl (70-99); Potassium 4.3 mmol/L (3.5-5.1); Sodium 134 mmol/L (135-145); eGFR > 60.00
--- NOTE | 2025-02-04 16:08 | CM ---
F/U: [facility] denied the patient due to not in network with her insurance. Therefore, met with the patient, she provided 3 more options so now waiting on their acceptance and a bed then can go for insurance authorization. PLAN: SNF when ready.
[2025-02-04] MEDS: ELAVIL 50 MG PO (21:10)
[2025-02-04] MEDS: LIPITOR 80 MG PO (21:10)
[2025-02-05 03:46] VITALS: BP 105/46
[2025-02-05 06:00] VITALS: BMI 26.3
[2025-02-05 07:00] VITALS: BP 128/59
[2025-02-05] MEDS: TYLENOL 1000 MG PO ×3 (08:51→20:29)
[2025-02-05] MEDS: ASPIRIN 325 MG PO (08:51)
[2025-02-05] MEDS: PROTONIX 20 MG PO (08:52)
--- NOTE | 2025-02-05 10:57 | W.PN.HOSP.TC ---
Today's Communication/Plan
-
Assessment / Plan
Assessment / Plan
General: No Apparent Distress, Comfortable and Conversant
HEENT: NormoCephalic, Moist mucous membranes, Atraumatic
Respiratory: Clear and Non Labored Respirations
Cardiac: Regular rhythm, heart rate 70
GI: Soft, Non Tender, Non Distended and Normal Bowel Sounds
Musculoskeletal: No Edema, right lower extremity with postoperative dressing CDI
Skin: Warm and dry
: NO Sagastume
Neuro: Awake, Alert, Nonfocal/grossly intact
Psych: Calm and cooperative
Ms. Silva is an 84-year-old female with a medical history of hypertension, CVA, Linq implant, and PFO who presented with right hip pain after mechanical fall at home. She was found to have a right intertrochanteric femur fracture. Her right
shoulder was also painful but imaging showed no fracture or dislocation, did show osteoarthritis. She was admitted for further evaluation and management.
Right intertrochanteric hip fracture:
- Traumatic following mechanical fall
- OR 02/02 with Ortho for ORIF
- Pain control as needed
- Aspirin 325 mg daily for 4 weeks per Ortho recommendations
- PT recommending SNF, placement pending
- Medically stable for discharge
Cerebrovascular disease:
- Prior stroke, presumed embolic, no residual deficits
- PFO found on echo at the time of her stroke, small in size and not a candidate for closure
- Linq implant in place
- Continuing aspirin and statin
Hyponatremia:
- Mild
- Likely hypovolemic, gave normal saline 500 cc at low rate
- Will monitor
Hypertension:
- Patient actually mildly hypotensive, have been holding home lisinopril 40 mg daily
- Gave gentle IV fluids, monitor
- Normotensive today
- Will likely restart antihypertensive regimen at lower dose if needed
DVT prophylaxis: SCDs, full-strength aspirin
CODE STATUS: Full code
Anticipated Discharge: 24 - 48 hours
Subjective/Interval History
-
Date of Service: February 05, 2025
Patient was seen and examined at bedside this morning. Right leg pain improving. Awaiting SNF placement.
Objective Data
-
Labs:
Laboratory Results
02/05/25
11:30
WBC Pending
Hgb Pending
Hct Pending
Plt Count Pending
Sodium Pending
Potassium Pending
Chloride Pending
Carbon Dioxide Pending
BUN Pending
Creatinine Pending
Glucose Pending
Calcium Pending
Vital Signs:
Vital Signs
Temp Pulse Resp BP Pulse Ox
98.1 F 70 12 128/59 96
02/05/25 07:00 02/05/25 07:00 02/05/25 07:00 02/05/25 07:00 02/05/25 07:00
I&O
02/04/25 02/05/25 02/06/25
06:59 06:59 06:59
Intake Total 980 / 980 750 / 750
Output Total 375 / 375 2450 / 2450
Balance 605 / 605 -1700 / -1700
Review of Systems
-
History Source: Patient
All other systems: Reviewed and negative
Physical Exam
-
General: No Apparent Distress
[2025-02-05 11:00] VITALS: BP 123/61; BP 131/56; BP 132/68; PULSE 79; PULSE 94
[2025-02-05 12:00] LABS: Hematocrit 32.6 % (37.0-47.0); Hemoglobin 11.0 g/dL (12.0-16.0); Mean Corp Hgb Conc. 33.7 g/dL (33.0-37.0); Mean Corpuscular Volume 95.3 fL (81.0-99.0); Nucleated Red Blood Cells % 0 %; Platelet Count 174 10^3/uL (130-400); Red Cell Dist. Width 14.0 % (11.5-14.5)
[2025-02-05 12:23] LABS: Blood Urea Nitrogen 24 mg/dl (7-17); Calcium 8.6 mg/dl (8.4-10.2); Carbon Dioxide 26 mmol/L (22-30); Chloride 102 mmol/L (98-107); Estimated Creatinine Clearance 52 ml/min; Glucose 106 mg/dl (70-99); Potassium 4.2 mmol/L (3.5-5.1); Sodium 132 mmol/L (135-145); eGFR > 60.00
[2025-02-05 14:47] VITALS: BP 118/63; PULSE 99; O2SAT 97
[2025-02-05 15:00] VITALS: BP 131/59
--- NOTE | 2025-02-05 15:56 | CM ---
F/U: [facility] responded to say that there is a bed. [facility] is not sure until tomorrow. MARIA ELENA Marley completed Authorization via [employer]:
Ref: [id number] (no clinical faxed as of yet)
Has been pending all afternoon so waiting on response today, but likely tomorrow. Hospitalist and patient are aware. PLAN: SNF when ready.
[2025-02-05] MEDS: ELAVIL 50 MG PO (20:28)
[2025-02-05] MEDS: LIPITOR 80 MG PO (20:29)
[2025-02-05] MEDS: ROXICODONE 5 MG PO (21:48)
[2025-02-05 23:56] VITALS: BP 118/53
[2025-02-06] MEDS: ROXICODONE 5 MG PO (05:25)
[2025-02-06 06:00] VITALS: BMI 26.3
[2025-02-06 08:21] VITALS: BP 135/61
[2025-02-06] MEDS: TYLENOL 1000 MG PO ×3 (09:19→22:08)
[2025-02-06] MEDS: ASPIRIN 325 MG PO (09:20)
[2025-02-06] MEDS: PROTONIX 20 MG PO (09:20)
--- NOTE | 2025-02-06 09:53 | CM ---
Chart reviewed. Hammad lay still pending
Faxed clinicals to [phone]
Pending cert# [id number]
Plan: [facility], pending auth
[2025-02-06 10:15] LABS: Hematocrit 35.8 % (37.0-47.0); Hemoglobin 12.0 g/dL (12.0-16.0); Mean Corp Hgb Conc. 33.5 g/dL (33.0-37.0); Mean Corpuscular Volume 96.5 fL (81.0-99.0); Nucleated Red Blood Cells % 0 %; Platelet Count 212 10^3/uL (130-400); Red Cell Dist. Width 14.0 % (11.5-14.5)
[2025-02-06 10:50] LABS: Blood Urea Nitrogen 22 mg/dl (7-17); Calcium 8.9 mg/dl (8.4-10.2); Carbon Dioxide 30 mmol/L (22-30); Chloride 99 mmol/L (98-107); Estimated Creatinine Clearance 52 ml/min; Glucose 132 mg/dl (70-99); Potassium 4.3 mmol/L (3.5-5.1); Sodium 135 mmol/L (135-145); eGFR > 60.00
[2025-02-06 11:16] VITALS: BP 137/59; PULSE 81; O2SAT 97
[2025-02-06 11:37] VITALS: BP 137/59; PULSE 81; O2SAT 97
--- NOTE | 2025-02-06 12:00 | W.PN.HOSP.TC ---
Today's Communication/Plan
-
see plan
Assessment / Plan
Assessment / Plan
Gen: NAD, AAOx3.
Eyes: EOMI, PERRLA, no scleral icterus.
Neck: supple.
CV: RRR, +S1/S2, no m/r/g.
Resp: CTAB, no rales, wheezes, or rhonchi.
Abd: +BS, soft, NT, ND
Skin: No rashes.
Neuro: CN 2-12 intact, non-focal.
Psych: Normal mood and affect.
Right intertrochanteric hip fracture:
-traumatic following mechanical fall. Also likely a component of osteoporosis considering the patient's age that contributed to hip fracture.
-s/p ORIF on 02/02
- Pain control as needed
- Aspirin 325 mg daily for 4 weeks per Ortho recommendations
- PT recommending SNF, placement pending
- Medically stable for discharge
Cerebrovascular disease:
- Prior stroke, presumed embolic, no residual deficits
- PFO found on echo at the time of her stroke, small in size and not a candidate for closure
- Linq implant in place
- Continuing aspirin and statin
Other problems:
Hyponatremia, resolved with IVFs
Essential HTN: Home Lisinopril 40mg has been on hold. Cont to hold based on BP trend.
DVT prophylaxis: SCDs, full-strength aspirin
FULL CODE
Remains medically cleared for d/c.
Anticipated Discharge: Today
Subjective/Interval History
-
Date of Service: February 06, 2025
No new complaints.
Objective Data
-
Labs:
Laboratory Results
02/06/25
09:50
WBC 6.2
Hgb 12.0
Hct 35.8 L
Plt Count 212 D
Sodium 135
Potassium 4.3
Chloride 99
Carbon Dioxide 30
BUN 22 H
Creatinine 0.7
Glucose 132 H
Calcium 8.9
Vital Signs:
Vital Signs
Temp Pulse Resp BP Pulse Ox
97.6 F 71 16 135/61 96
02/06/25 08:21 02/06/25 08:21 02/06/25 08:21 02/06/25 08:21 02/06/25 08:21
I&O
02/05/25 02/06/25 02/07/25
06:59 06:59 06:59
Intake Total 750 / 750 540 / 540
Output Total 2450 / 2450 2300 / 2300
Balance -1700 / -1700 -1760 / -1760
[2025-02-06 15:47] VITALS: BP 162/67
[2025-02-06] MEDS: ELAVIL 50 MG PO (22:08)
[2025-02-06] MEDS: LIPITOR 80 MG PO (22:08)
[2025-02-06 23:01] VITALS: BP 135/56
[2025-02-07 06:00] VITALS: BMI 26.0
[2025-02-07] MEDS: ASPIRIN 325 MG PO (07:35)
[2025-02-07] MEDS: TYLENOL 1000 MG PO ×2 (07:35→15:47)
[2025-02-07] MEDS: PROTONIX 20 MG PO (07:35)
[2025-02-07 08:54] VITALS: BP 137/62
--- NOTE | 2025-02-07 09:31 | W.PN.HOSP.TC ---
Addendum entered and electronically signed by Alpesh Pickens MD 02/07/25 14:02:
Total time spent on d/c = 31 min. This included today's physical exam, progress note, review of laboratory and diagnostic data, preparation of discharge documents and prescriptions, and discussions about the pt's hospital course and discharge plan
with the patient and other diagnostic medical sonographer involved in the patient's care.
Original Note:
Today's Communication/Plan
-
d/c
Assessment / Plan
Assessment / Plan
Gen: NAD, AAOx3.
Eyes: EOMI, PERRLA, no scleral icterus.
Neck: supple.
CV: remains RRR, +S1/S2, no m/r/g.
Resp: CTAB anteriorly, no rales, wheezes, or rhonchi.
Abd: remains +BS, soft, NT, ND
Skin: No rashes.
Neuro: CN 2-12 intact, non-focal.
Psych: Normal mood and affect.
Right intertrochanteric hip fracture:
-traumatic following mechanical fall. Also likely a component of osteoporosis considering the patient's age that contributed to hip fracture.
-s/p ORIF on 02/02
- Pain control as needed
- Aspirin 325 mg daily for 4 weeks per Ortho recommendations
- PT recommending SNF, placement pending
- Medically stable for discharge
Cerebrovascular disease:
- Prior stroke, presumed embolic, no residual deficits
- PFO found on echo at the time of her stroke, small in size and not a candidate for closure
- Linq implant in place
- Continuing aspirin and statin
Other problems:
Hyponatremia, resolved with IVFs
Essential HTN: Home Lisinopril 40mg has been on hold. Cont to hold based on BP trend.
DVT prophylaxis: SCDs, full-strength aspirin
FULL CODE
Remains medically cleared for d/c since 02/05.
Anticipated Discharge: Today
Subjective/Interval History
-
Date of Service: February 07, 2025
No new complaints.
Objective Data
-
Vital Signs:
Vital Signs
Temp Pulse Resp BP Pulse Ox
98.1 F 69 16 137/62 96
02/07/25 08:54 02/07/25 08:54 02/07/25 08:54 02/07/25 08:54 02/07/25 08:54
I&O
02/06/25 02/07/25 02/08/25
06:59 06:59 06:59
Intake Total 540 / 540 540 / 540
Output Total 2300 / 2300 200 / 200
Balance -1760 / -1760 340 / 340
[2025-02-07 09:33] VITALS: BP 137/63; BP 148/64; PULSE 66; O2SAT 96
--- NOTE | 2025-02-07 10:37 | CM ---
Addendum entered by Sanam Nichols 02/07/25 14:08:
Auth approved beginning today, 02/07 NRD 02/13
Approved cert # [id number]
Updated [facility] admissions
Updated hospitalist
Patient will need ambulance transport
IMM verbally reviewed, copy provided, copy on chart
[facility]
Report: [phone]

Original Note:
CM called [employer] to inquire on auth status
CM spoke w/ Jarret, confirmed receipt of clinicals yesterday. Jarret stated a nurse has been assigned to case this morning and will review
Update to hospitalist
Pending cert# [id number]
Plan: [facility], pending auth
--- NOTE | 2025-02-07 14:28 | W.DCSUMMARY ---
Discharge Summary
Discharge Data
Date of Admission: 02/02/25
Date of Discharge: 02/07/25
-
Pending Results: No
Hospital Course
Primary diagnoses:
Right intertrochanteric hip fracture s/p open reduction and internal fixation with cephalomedullary nail on 02/02/25
Secondary diagnoses:
Hyponatremia
Essential hypertension
History of prior cerebrovascular accident
History of patent foramen ovale
Consultants:
Orthopedics
Imaging:
R hip and pelvis Xray: Acute intertrochanteric fracture right femur.
Hospital course: 84-year-old female who presented with a fall and right hip pain as outlined in the H&P done on admission. Patient was found to have an acute intertrochanteric fracture of the right femur. She underwent internal fixation with
cephalomedullary nail on 02/02/25 and tolerated the procedure well. She was discharged in medically stable condition.
Discharge Plan
-
Patient Disposition: Detention/SNF
Discharge Diagnosis/Procedures: Right intertrochanteric hip fracture s/p open reduction and internal fixation with cephalomedullary nail on 02/02/25
Condition: Good
Diet: Low Cholesterol
Activity: As tolerated
Driving Restrictions: Not until seen by your Dr
Referrals:
Jesika Howard DO [Family Provider, Family Practice] - in less than 1 week
Prescriptions:
New
acetaminophen [Tylenol Extra Strength] 500 mg Tablet
1,000 mg PO TID Qty: 0 0RF
aspirin 325 mg Tablet
325 mg PO DAILY Qty: 0 0RF
calcium carbonate [Calcium Antacid] 200 mg calcium (500 mg) Tablet,Chewable
200 mg PO Q6HPRN PRN (Reason: reflux/indigestion) Qty: 0 0RF
Continued
amitriptyline 50 MG tablet
50 mg PO HS
lisinopril 40 MG tablet
40 mg PO DAILY
omeprazole 20 mg Tablet,Delayed Release (Dr/Ec)
20 mg PO DAILY
atorvastatin [Lipitor] 80 mg Tablet
80 mg PO HS
cholecalciferol (vitamin D3) [Vitamin D3] 50 mcg (2,000 unit) Tablet
50 mcg PO DAILY
glucosamine sulfate 500 mg Tablet
500 mg PO QID
Discontinued
aspirin 81 mg Tablet,Chewable
81 mg PO DAILY Qty: 0 0RF
Discharge Orders:
Discharge Patient (As Directed); Ordered 02/07/25
Ordered By: Alpesh Pickens
Discharge Date and Time
Print Language: [place]
[2025-02-07 16:00] VITALS: BP 155/73
[2025-02-07 19:04] VITALS: BP 123/78
== END 2025-02-07 19:46 | DRG 481 ==
LOC: 4 EAST ACU 02:49
PROVIDERS: Emergency Medicine; Internal Medicine; Student in an Organized Health Care Education/Training Program; ADMITTING PHYSICIAN Hospitalist; ATTENDING PHYSICIAN Internal Medicine; EMERGENCY PHYSICIAN Emergency Medicine; FAMILY PHYSICIAN Family Medicine; OTHER PHYSICIAN Orthopaedic Surgery
PROC: 0QS606Z Reposition Right Upper Femur with Intramedullary Internal Fixation Device, Open Approach (ICD-10-PCS; 2025-02-02)
DX: S72.141A Displaced intertrochanteric fracture of right femur, initial encounter for closed fracture (principal); E87.1 Hypo-osmolality and hyponatremia; Q21.12 Patent foramen ovale; K21.9 Gastro-esophageal reflux disease without esophagitis; I10 Essential (primary) hypertension; E78.00 Pure hypercholesterolemia, unspecified; G43.909 Migraine, unspecified, not intractable, without status migrainosus; M17.11 Unilateral primary osteoarthritis, right knee; M19.011 Primary osteoarthritis, right shoulder; M54.16 Radiculopathy, lumbar region; W01.0XXA Fall on same level from slipping, tripping and stumbling without subsequent striking against object, initial encounter; Y93.01 Activity, walking, marching and hiking; Y92.099 Unspecified place in other non-institutional residence as the place of occurrence of the external cause; Z60.2 Problems related to living alone; Z88.8 Allergy status to other drugs, medicaments and biological substances; Z79.82 Long term (current) use of aspirin; I69.30 Unspecified sequelae of cerebral infarction; Z79.899 Other long term (current) drug therapy
CPT/HCPCS: 73030; 73502; 73552; 76000; 80048; 80053; 85014; 85018; 85025; 85027; 93005; 96361; 96374; 97110; 97116; 97163; 97167; 97530; 97535; 99285; C1713